=== PATIENT | female | born 1955 | race Caucasian/White ===

== ENCOUNTER 2017-05-11 00:06 | Emergency (ER) | payer OTHER ==
[2017-05-11] MEDS ORDERED: NS 0.9% 1000 ML* 1,000 ML IV ONE (01:39)
[2017-05-11 02:13] LABS: Hematocrit 39 % (35-47); Hemoglobin 12.5 g/dl (12.0-16.0); Mean Corpuscular HGB Conc 33 g/dl (31-36); Mean Corpuscular Hemoglobin 28 pg (27-31); Mean Corpuscular Volume 86 fL (80-97); Mean Platelet Volume 8 um3 (7.4-10.4); Red Blood Count 4.48 10^6/ul (4.0-5.4); Red Cell Distribution Width 13 % (10.5-15); White Blood Count 7.5 10^3/ul (3.5-10.8)
[2017-05-11 02:18] LABS: Urine Bilirubin Negative (Negative); Urine Glucose Negative (Negative); Urine Nitrite Negative (Negative)
[2017-05-11 02:25] LABS: Albumin 3.9 g/dL (3.2-5.2); BUN/Creatinine Ratio 22.2 (8-20); Calcium 9.1 mg/dL (8.6-10.3); EGFR Non-African American 96.4 (>60); Globulin 2.8 g/dL (2-4); Potassium 3.7 mmol/L (3.5-5.0); Total Bilirubin 0.4 mg/dL (0.2-1.0); Total Protein 6.7 g/dL (6.4-8.9)
[2017-05-11 02:27] LABS: Troponin I 0.01 ng/mL (<0.04)
[2017-05-11] MEDS ORDERED: Iodixanol* (CONTRAST) 320 MG/ML 100 ML SDV IV ONE (04:50)
--- NOTE | 2017-05-11 05:53 | ED ---
riana Stark Timothy, scribed for FerdinandJuan Pablo on 05/11/17 at 0137 . Abdominal Pain/Female - HPI Summary HPI Summary: Sydnee Michaud is a 61 yo female presenting to [facility] with 4/10 intermittent right sided abd pain for the past 3 days without N/V/D or fever, hematuria, vaginal discharge/bleeding. She states that her pain is worse with urination. She denies CP, SOB, or Hx of kidney stones. Her MHx includes angina, HLD, pericarditis, dyslipidemia, migraine, GERD, hemorrhoids, arthritis, DM, depression, anxiety, tobacco use (quit over 20 years ago). - History of Current Complaint Chief Complaint: EDAbdPain Stated Complaint: ABD PAIN Time Seen by Provider: 05/11/17 01:33 Hx Obtained From: Patient Onset/Duration: Gradual Onset, Lasting Days, Still Present Timing: Intermittent Episode Lasting - seconds Severity Initially: Moderate Severity Currently: Moderate Pain Intensity: 4 Pain Scale Used: 0-10 Numeric Location: Diffuse Radiates: No Aggravating Factor(s): Other: - urination Associated Signs and Symptoms: Negative: Nausea, Vomiting, Diarrhea Allergies/Adverse Reactions: Allergies Allergy/AdvReac Type Severity Reaction Status Date / Time Meperidine [From Demerol HCl] Allergy Intermediate Vomiting Verified 05/11/17 00 :14 Sulfa Drugs Allergy Intermediate Unknown Verified 05/11/17 00:14 Reaction Details Acetaminophen Allergy Unknown Unknown Verified 05/11/17 00:14 [From Darvocet-N] Reaction Details Propoxyphene Allergy Unknown Unknown Verified 05/11/17 00:14 [From Darvocet-N] Reaction Details Oxycodone [From Percocet] Allergy Unknown Verified 05/11/17 00:14 Reaction Details PMH/Surg Hx/FS Hx/Imm Hx Endocrine/Hematology History: Reports: Hx Diabetes Denies: Hx Thyroid Disease, Hx Anemia Cardiovascular History: Reports: Hx Angina, Hx Hypercholesterolemia, Other Cardiovascular Problems/Disorders - pericarditis, dyslipidemia Denies: Hx Coronary Artery Disease, Hx Hypertension, Hx Myocardial Infarction , Hx Pacemaker/ICD Respiratory History: Denies: Hx Asthma, Hx Chronic Obstructive Pulmonary Disease (COPD) GI History: Reports: Hx Gastroesophageal Reflux Disease, Other GI Disorders - colonoscopy 2011 polyps removed, hemorroids Denies: Hx Cirrhosis, Hx Jaundice, Hx Ulcer History: Denies: Hx Renal Disease Musculoskeletal History: Reports: Hx Arthritis, Hx Back Problems Denies: Hx Rheumatoid Arthritis, Hx Osteoporosis Sensory History: Reports: Hx Contacts or Glasses Denies: Hx Hearing Aid Opthamlomology History: Reports: Hx Contacts or Glasses Neurological History: Reports: Hx Headaches, Hx Migraine Psychiatric History: Reports: Hx Anxiety, Hx Depression Denies: Hx Panic Disorder - Cancer History Hx Chemotherapy: No Hx Radiation Therapy: No - Surgical History Surgery Procedure, Year, and Place: hemorrhoidectomy. sinus surgery. tubal. laproscopic exploratory surgeries x 2. polyp removals-[facility] Infectious Disease History: No Infectious Disease History: Denies: Hx Clostridium Difficile, Hx Hepatitis, Hx Human Immunodeficiency Virus (HIV), Hx of Known/Suspected MRSA, Hx Shingles, Hx Tuberculosis, Hx Known/ Suspected VRE, Hx Known/Suspected VRSA, History Other Infectious Disease, Traveled Outside the in Last 30 Days - Family History Known Family History: Positive: Cardiac Disease, Other - colon CA - Social History Alcohol Use: None Substance Use Type: Reports: None Smoking Status (MU): Former Smoker Amount Used/How Often: quit 18 years ago Review of Systems Constitutional: Negative Negative: Fever Eyes: Negative ENT: Negative Cardiovascular: Negative Respiratory: Negative Positive: Abdominal Pain. Negative: Vomiting, Diarrhea, Nausea Genitourinary: Negative Negative: discharge, hematuria Musculoskeletal: Negative Skin: Negative Neurological: Negative Psychological: Normal All Other Systems Reviewed And Are Negative: Yes Physical Exam Triage Information Reviewed: Yes Vital Signs On Initial Exam: Initial Vitals Temp Pulse Resp BP Pulse Ox 98.1 F 77 16 130/76 97 05/11/17 00:15 05/11/17 00:15 05/11/17 00:15 05/11/17 00:05/11/17 00:15 Vital Signs Reviewed: Yes Appearance: Positive: Well-Appearing, No Pain Distress, Well-Nourished Skin: Positive: Warm, Skin Color Reflects Adequate Perfusion, Dry Head/Face: Positive: Normal Head/Face Inspection Eyes: Positive: EOMI, KATHLEEN ENT: Positive: Normal ENT inspection, Hearing grossly normal. Negative: Muffled /hoarse voice Neck: Positive: Supple, Nontender Respiratory/Lung Sounds: Positive: Clear to Auscultation, Breath Sounds Present Cardiovascular: Positive: RRR, Pulses are Symmetrical in both Upper and Lower Extremities Abdomen Description: Positive: Nontender - RLQ tenderness Bowel Sounds: Positive: Present Musculoskeletal: Positive: Normal, Strength/ROM Intact Neurological: Positive: Normal, Sensory/Motor Intact, Alert, Oriented to Person Place, Time Psychiatric: Positive: Normal, Affect/Mood Appropriate Diagnostics - Vital Signs Vital Signs Temp Pulse Resp BP Pulse Ox 05/11/17 00:16 98.1 F 77 16 130/76 97 05/11/17 00:15 98.1 F 77 16 130/76 97 - Laboratory Lab Results: Lab Results 05/11/17 05/11/17 05/11/17 Range/Units 02:00 02:00 02:00 WBC 7.5 (3.5-10.8) 10^3/ul RBC 4.48 (4.0-5.4) 10^6/ul Hgb 12.5 (12.0-16.0) g/dl Hct 39 (35-47) % MCV 86 (80-97) fL MCH 28 (27-31) pg MCHC 33 (31-36) g/dl RDW 13 (10.5-15) % Plt Count 223 (150-450) 10^3/ul MPV 8 (7.4-10.4) um3 Neut % (Auto) 58.8 (38-83) % Lymph % (Auto) 29.8 (25-47) % Mcpherson % (Auto) 7.8 (1-9) % Eos % (Auto) 2.3 (0-6) % Baso % (Auto) 1.3 (0-2) % Absolute Neuts (auto) 4.4 (1.5-7.7) 10^3/ul Absolute Lymphs (auto) 2.2 (1.0-4.8) 10^3/ul Absolute Monos (auto) 0.6 (0-0.8) 10^3/ul Absolute Eos (auto) 0.2 (0-0.6) 10^3/ul Absolute Basos (auto) 0.1 (0-0.2) 10^3/ul Absolute Nucleated RBC 0 10^3/ul Nucleated RBC % 0 INR (Anticoag Therapy) 0.92 (0.89-1.11) APTT 29.0 (26.0-36.3) seconds Sodium (133-145) mmol/L Potassium (3.5-5.0) mmol/L Chloride (101-111) mmol/L Carbon Dioxide (22-32) mmol/L Anion Gap (2-11) mmol/L BUN (6-24) mg/dL Creatinine (0.51-0.95) mg/dL Est GFR ( Amer) (>60) Est GFR (Non-Af Amer) (>60) BUN/Creatinine Ratio (8-20) Glucose (70-100) mg/dL Lactic Acid (0.5-2.0) mmol/L Calcium (8.6-10.3) mg/dL Total Bilirubin (0.2-1.0) mg/dL AST (13-39) U/L ALT (7-52) U/L Alkaline Phosphatase (34-104) U/L Troponin I (<0.04) ng/mL Total Protein (6.4-8.9) g/dL Albumin (3.2-5.2) g/dL Globulin (2-4) g/dL Albumin/Globulin Ratio (1-3) Lipase (11.0-82.0) U/L Urine Color Yellow Urine Appearance Clear Urine pH 5.0 (5-9) Ur Specific [place] 1.025 (1.010-1.030) Urine Protein Negative (Negative) Urine Ketones Negative (Negative) Urine Blood Negative (Negative) Urine Nitrate Negative (Negative) Urine Bilirubin Negative (Negative) Urine Urobilinogen Negative (Negative) Ur Leukocyte Esterase Negative (Negative) Urine Glucose Negative (Negative) 05/11/17 05/11/17 Range/Units 02:00 02:00 WBC (3.5-10.8) 10^3/ul RBC (4.0-5.4) 10^6/ul Hgb (12.0-16.0) g/dl Hct (35-47) % MCV (80-97) fL MCH (27-31) pg MCHC (31-36) g/dl RDW (10.5-15) % Plt Count (150-450) 10^3/ul MPV (7.4-10.4) um3 Neut % (Auto) (38-83) % Lymph % (Auto) (25-47) % Mcpherson % (Auto) (1-9) % Eos % (Auto) (0-6) % Baso % (Auto) (0-2) % Absolute Neuts (auto) (1.5-7.7) 10^3/ul Absolute Lymphs (auto) (1.0-4.8) 10^3/ul Absolute Monos (auto) (0-0.8) 10^3/ul Absolute Eos (auto) (0-0.6) 10^3/ul Absolute Basos (auto) (0-0.2) 10^3/ul Absolute Nucleated RBC 10^3/ul Nucleated RBC % INR (Anticoag Therapy) (0.89-1.11) APTT (26.0-36.3) seconds Sodium 137 (133-145) mmol/L Potassium 3.7 (3.5-5.0) mmol/L Chloride 105 (101-111) mmol/L Carbon Dioxide 25 (22-32) mmol/L Anion Gap 7 (2-11) mmol/L BUN 14 (6-24) mg/dL Creatinine 0.63 (0.51-0.95) mg/dL Est GFR ( Amer) 124.0 (>60) Est GFR (Non-Af Amer) 96.4 (>60) BUN/Creatinine Ratio 22.2 H (8-20) Glucose 145 H (70-100) mg/dL Lactic Acid 1.2 (0.5-2.0) mmol/L Calcium 9.1 (8.6-10.3) mg/dL Total Bilirubin 0.40 (0.2-1.0) mg/dL AST 28 (13-39) U/L ALT 46 (7-52) U/L Alkaline Phosphatase 65 (34-104) U/L Troponin I 0.01 (<0.04) ng/mL Total Protein 6.7 (6.4-8.9) g/dL Albumin 3.9 (3.2-5.2) g/dL Globulin 2.8 (2-4) g/dL Albumin/Globulin Ratio 1.4 (1-3) Lipase 13 (11.0-82.0) U/L Urine Color Urine Appearance Urine pH (5-9) Ur Specific [place] (1.010-1.030) Urine Protein (Negative) Urine Ketones (Negative) Urine Blood (Negative) Urine Nitrate (Negative) Urine Bilirubin (Negative) Urine Urobilinogen (Negative) Ur Leukocyte Esterase (Negative) Urine Glucose (Negative) Result Diagrams: 05/11/17 02:00 05/11/17 02:00 Lab Statement: Any lab studies that have been ordered have been reviewed, and results considered in the medical decision making process. 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 CT Interpretation Completed By: Radiologist - Imaging precision lens centerer and edger Re-Evaluation - Re-Evaluation First Eval Re-Evaluation Time: 05:05 Change: Unchanged Comment: Discussed preliminary CT A/P results with Pt. Abdominal Pain Fem Course/Dx - Course Course Of Treatment: Sydnee Michaud is a 61 yo female presenting to [facility] with 4/10 intermittent right sided abd pain lasting seconds for the past 3 days without N/V/D or fever, hematuria, vaginal discharge/bleeding. Pt medication list reviewed this visit. In the ED course she received IV fluids. Her CT A/P suggests suspected mesenteric metastatic disease of uncertain primary, large right hepatic lesion appears to represent menangioma, slightly large left ovary without definite mass can be followed up with US. She will be signed out to Dr. Shannon pending pelvic US results. - Diagnoses Differential Diagnosis: Positive: Other - abdominal pain Provider Diagnoses: Abdominal pain Discharge - Discharge Plan Condition: Stable Disposition: OTHER Discharge Disposition Comment: signed out to Dr. Shannon pending pelvic US results The documentation as recorded by the riana jameson Timothy accurately reflects the service I personally performed and the decisions made by , Juan Pablo Streeter.
--- NOTE | 2017-05-11 08:17 | RAD ---
INDICATION: Abdominal pain, appendicitis. COMPARISON: Comparison is made to prior CT of the abdomen and pelvis from February 09, 2008. TECHNIQUE: A CT scan of the abdomen and pelvis was performed with intravenous and oral contrast following intravenous injection of 116 ml of Visipaque 320 nonionic contrast. Contiguous axial sections were obtained from the lung bases through the symphysis pubis. Images were reconstructed in the coronal and sagittal planes. FINDINGS: The lung bases are clear. No pleural effusion is present. The liver and spleen are mildly enlarged. There is a hypodense lesion present in the inferior portion of the right hepatic lobe measuring 5.8 x 5.1 cm in size. This is increased slightly in size from the prior exam and previous seen measured 5.0 x 4.3 cm in size. This has discontinuous peripheral nodular enhancement and would be most consistent with a hemangioma. No other focal hepatic abnormalities are seen. No intra or extrahepatic ductal distention is seen. No calcified gallstones are noted. The pancreas appears to be within normal limits. The kidneys and adrenal glands are normal in size. No hydronephrosis is seen. No significant focal renal abnormality is seen. The aorta is normal in caliber with mild calcific plaque present. The stomach, small and large bowel appear nondistended. The appendix is within normal limits. There is no evidence for diverticulitis or colitis. There is a moderate amount retained stool present. There is a small periumbilical hernia present containing fat. There are multiple soft tissue density masses and nodules present throughout the mesentery and omentum most consistent with metastatic disease and omental caking. Some of these have calcifications within them. In addition surrounding the posterior and lateral aspects of the uterus there is increased soft tissue density mass with some calcification which does not appear to connect with the adjacent bowel. The left ovary is enlarged and heterogeneous with central low density measuring 5.2 x 4.2 cm in size. No large retroperitoneal lymph nodes are seen. No free intraperitoneal air or fluid is seen. No significant focal osseous abnormality is seen. IMPRESSION: 1. MULTIPLE MESENTERIC AND OMENTAL MASSES MOST CONSISTENT WITH METASTATIC DISEASE. THERE IS ALSO INCREASED SOFT TISSUE DENSITY AROUND THE UTERUS AND A COMPLEX CYSTIC AND SOLID MASS IN THE LEFT OVARY. RECOMMEND A FOLLOW-UP PELVIC ULTRASOUND FOR FURTHER EVALUATION. 2. HEPATIC MASS MOST CONSISTENT WITH A HEMANGIOMA.
--- NOTE | 2017-05-11 09:21 | RAD ---
INDICATION: Left pelvic mass. COMPARISON:MRI pelvis April 02, 2017; pelvic sonogram June 02, 2013 TECHNIQUE: Longitudinal and transverse transabdominal and transvaginal of the pelvis were obtained. FINDINGS: Uterus: The uterus is normal in size. There there is a posterior fundal fibroid measuring 3.2 x 2.2 x 2.7 cm. This appears smaller than noted previously. No other definitive fibroids are seen on today's exam. The uterus measures 8.6 x 4.2 x 5.0 cm. These measurements are smaller than at the time of the 2013 examination. Endometrial thickness: The endometrial thickness is measured at 0.6 cm. This is borderline thickened. Free fluid: There is no significant free fluid . Ovaries: The right ovary appears normal measuring 2.5 x 1.8 x 1.6 cm. There is flow on Doppler interrogation. There is a large left adnexal mass as also described on the recent MRI. The mass is solid and heterogeneous with flow on Doppler interrogation. The mass, which presumably also involves the ovary measures 4.6 x 2.6 x 2.6 cm. Other: None IMPRESSION: LARGE LEFT OVARIAN ADNEXAL CONCERNING FOR PRIMARY GYNECOLOGIC LATENCY. SUGGEST GYNECOLOGIC REFERRAL. FIBROID UTERUS WITH BORDERLINE THICKENED ENDOMETRIUM.
[2017-05-11 10:27] VITALS: BP 128/74
--- NOTE | 2017-05-11 20:03 | ED ---
Mary Stark Edward, scribed for Zeferino Shannon MD on 05/11/17 at 0734 . Progress - Progress Note Progress Note: Patient states her RLQ pain is not bad rated at a 3/10 on visit. Patient is informed that we are waiting US results. Diag - CT ABD/PEL showed suspected mesenteric metastatic disease of uncertain primary. Large right hepatic lesion appears to represent a meningioma. Slightly large left ovary without definite mass can be followup with ultrasound, interpreted by the radiologist. PEL/TRANSVAG US - LARGE LEFT OVARIAN ADNEXAL CONCERNING FOR PRIMARY GYNECOLOGIC LATENCY. SUGGEST GYNECOLOGIC REFERRAL. FIBROID UTERUS WITH BORDERLINE THICKENED ENDOMETRIUM. PE - VITAL SIGNS:~Reviewed. GENERAL:~Patient is a well-developed and nourished female who is lying comfortable in the stretcher.~ Patient is not in any acute respiratory distress. HEAD AND FACE:~Normocephalic and atraumatic. EYES:~PERRLA, EOMI x 2, No injected conjunctiva. EARS:~Hearing grossly intact. Ear canals and tympanic membranes are WNL. MOUTH:~Oropharynx within normal limits. NECK:~Supple, trachea is midline, no adenopathy, no JVD. CHEST:~Symmetric, no tenderness at palpation LUNGS:~Clear to auscultation bilaterally. No wheezing or crackles. CVS:~RRR, S1 and S2 present, no murmurs or gallops appreciated. ABDOMEN:~Soft, slightly tender @ RLQ and LLQ. No signs of distention. Positive bowel sounds. No rebound no guarding, and no masses palpated. No abdominal bruit or pulsations. EXTREMITIES:~FROM in all major joints, no edema, no cyanosis or clubbing. NEURO:~Alert and oriented x 3. No acute neurological deficits. Speech is normal. SKIN:~Dry and warm COURSE/DX Discussed with Dr. Denice Belle ([facility]) who recommended the patient be discharged home, with f/u with Dr. Belle at her office. Dr. Belle will arrange the patient be treated at [facility] ([place]). Assessment and plan - Sydnee Michaud is a 61 yo female presenting to [facility] with 4/10 intermittent right sided abd pain for the past 3 days without N/V/D or fever, hematuria, vaginal discharge/bleeding. She states that her pain is worse with urination. She denies CP, SOB, or Hx of kidney stones. Her MHx includes angina, HLD, pericarditis, dyslipidemia, migraine, GERD, hemorrhoids, arthritis, DM, depression, anxiety, tobacco use (quit over 20 years ago). Sign out by Dr. Streeter. He reported that the pt came with lower abd pain and he did an abd/pel ct which showed suspected mesenteric metastatic disease of uncertain primary, large right hepatic lesion appears to represent menangioma, slightly large left ovary without definite mass can be followed up with US. Dr. Streeter requested follow up with Ultrasound and further management. Pelvic US showed LARGE LEFT OVARIAN ADNEXAL CONCERNING FOR PRIMARY GYNECOLOGIC LATENCY. SUGGEST GYNECOLOGIC REFERRAL. FIBROID UTERUS WITH BORDERLINE THICKENED ENDOMETRIUM. It seemed the patient may have L ovarian mass with metastasis. Therefore, I discussed the case with Dr. Belle from [facility] who recommends patient to be discharged home and f/u at her office for further workup and management. We need to rule out ovarian cancer with metastasis. Dr. Belle will reassess and if needed refer to [facility] oncology surgeon. Pt will be given pain medications to control pain at home. She was advised that this was a very important appointment with Dr. Belle since we need to rule out ovarian cancer. She understands that the earlier the diagnosis the earlier the treatement. She understands and agrees. The patient is hemodynamically stable and A&Ox3. Re-Evaluation - Re-Evaluation First Eval Re-Evaluation Time: 05:05 Change: Unchanged Comment: Discussed preliminary CT A/P results with Pt. Course/Dx - Course Course Of Treatment: Sydnee Michaud is a 61 yo female presenting to [facility] with 4/10 intermittent right sided abd pain lasting seconds for the past 3 days without N/V/D or fever, hematuria, vaginal discharge/bleeding. Pt medication list reviewed this visit. In the ED course she received IV fluids. Her CT A/P suggests suspected mesenteric metastatic disease of uncertain primary, large right hepatic lesion appears to represent menangioma, slightly large left ovary without definite mass can be followed up with US. She will be signed out to Dr. Shannon pending pelvic US results. - Diagnoses Provider Diagnoses: Abdominal pain, Ovarian mass r/o Ovarian Cancer w/ mets The documentation as recorded by the Mary jameson Edward accurately reflects the service I personally performed and the decisions made by me, Zeferino Shannon MD.
== END 2017-05-11 10:55 | disposition home or self-care (01) ==
LOC: ED 00:06
DX: N83.9 Noninflammatory disorder of ovary, fallopian tube and broad ligament, unspecified (principal); R10.31 Right lower quadrant pain
CPT/HCPCS: 36415; 74177; 76830; 76856; 80053; 81003; 83605; 83690; 84484; 85025; 85610; 85730; 86304; 99284; Q9967

== ENCOUNTER 2017-07-27 10:16 | Day surgery (SDC) | payer OTHER ==
[~2017-07-27 10:16] MED LIST: Buffered Lidocaine 0.9% SYRIN* 5 ML/SYR SYRINGE INTRADERM ONE; Famotidine IV* 10 MG/ML 2 ML (20 mg) IV ONE
[2017-07-27] MEDS ORDERED: Midazolam* 1 MG/ML 5 ML VIAL (5 MG) ONE (10:20)
[2017-07-27] MEDS ORDERED: fentaNYL* 50 MCG/ML 2 ML VIAL (100 MCG VIAL) ONE (10:20)
[2017-07-27] MEDS ORDERED: Lidocaine 1% INJ* 10 MG/ML 30 ML SDV ONE (10:25)
[2017-07-27] MEDS ORDERED: Ondansetron INJ* 2 MG/ML VIAL ONE (10:37)
[2017-07-27] MEDS ORDERED: Ketorolac INJ* 30 MG/ML 1 ML VIAL ONE (10:37)
[2017-07-27] MEDS ORDERED: Dexamethasone IV* 4 MG/ML 1 ML (4 MG) ONE (10:37)
[2017-07-27] MEDS ORDERED: Lidocaine 2% PF * 5 ML VIAL ONE (10:37)
[2017-07-27] MEDS ORDERED: Propofol* 10 MG/ML 20 ML BTL IV PUSH ONE (10:37)
[2017-07-27] MEDS ORDERED: Buffered Lidocaine 0.9% SYRIN* 5 ML/SYR SYRINGE ONE (10:44)
[2017-07-27] MEDS ORDERED: Heparin VIAL(*) 5000 UNITS/ML VIAL (FIVE THOUSAND) ONE (10:44)
[2017-07-27] MEDS ORDERED: Famotidine IV* 10 MG/ML 2 ML (20 mg) ONE (10:44)
[2017-07-27] MEDS ORDERED: Bupivacaine 0.5% SDV PF* 30 ML VIAL ONE (10:53)
[2017-07-27] MEDS ORDERED: DiMENhydriNATE IV* 50 MG/ML VIAL IV PUSH PRN (11:36)
[2017-07-27] MEDS ORDERED: HYDROmorphone INJ* 1 MG/ML CARPUJECT SYRINGE IV PRN (11:36)
[2017-07-27] MEDS ORDERED: oxyCODONE TAB* 5 MG TAB PO PRN (11:36)
[2017-07-27] MEDS ORDERED: Acetaminophen TAB* 325 MG PO PRN (12:23)
[2017-07-27 12:51] VITALS: BP 120/68
--- NOTE | 2017-07-27 12:57 | RAD ---
Indication: Post port placement. Ovarian carcinoma. Comparison: July 02, 2017 CT. Technique: Upright AP 1230 hours Report: Tip of subclavian approach RIGHT chest port is at the level of the superior vena cava directed central. Negative for pneumothorax. Clear lungs and pleural spaces. The heart, pulmonary vasculature, and mediastinal contours are unremarkable. IMPRESSION: Tip of RIGHT chest port is at the level of the superior vena cava directed central. Negative for pneumothorax.
--- NOTE | 2017-07-27 13:15 | SURGPN ---
Brief Operative Note - Surgery Procedures: Procedures BILAT ENDOS OCC TUBE NEC (11/22/95) ENDOSC POLYPECTOMY OF LG INTEST (08/20/03) ESOPHAGOGASTRODUODENOSCOPY [EGD] W/CLOSED BIOPSY (04/01/13) ETHMOIDECTOMY (08/04/96) INTRANASAL ANTROTOMY (08/04/96) OTHER SLEEP DISORDER FUNCTION TESTS (07/14/02) POLYSOMNOGRAM (06/10/02) SEPTOPLASTY NEC (08/04/96) TETANUS ANTITOXIN ADMINI (09/25/03) UTERINE LES DESTRUCT NEC (11/22/95) 07/27/17 Op Note (dictated) Pre-op dx: ovarian cancer Post-op dx: same Procedure: Power port placement Surgeon: Parker Asst: none EBL: 5 cc Abx: not indicated SCDs on during surgery Pt. tolerated procedure well and was transferred to in a stable condition. CLFoster
--- NOTE | 2017-07-27 13:52 | RAD ---
INDICATION: Power port placement COMPARISONS: None relevant TECHNIQUE: Fluoroscopy was provided for a vascular access procedure. Total fluoroscopy time is: 67.9 FINDINGS: Spot images demonstrate a right-sided chest port from a subclavian approach with the tip overlying the superior vena cava. IMPRESSION: FLUOROSCOPY WAS PROVIDED FOR A VASCULAR ACCESS PROCEDURE CPT II Codes: 6045F
--- NOTE | 2017-07-28 00:45 | OP ---
CC: [facility]; Chucky Galvez MD; [facility] OPERATIVE REPORT: DATE OF OPERATION: 07/27/17 DATE OF : 57 SURGEON: Marquita Canales MD FIELD TRAINER: There was no surgical assistant for this case. PRE-OPERATIVE DIAGNOSIS: Ovarian cancer. POST-OPERATIVE DIAGNOSIS: Ovarian cancer. OPERATIVE PROCEDURE: PowerPort placement. INDICATIONS: Ms. Michaud is a 61-year-old woman who needs chemotherapy for her ovarian cancer. Deniz arevalo was therefore prepared for surgery and brought to the operating room. DESCRIPTION OF PROCEDURE: She was placed on the OR table and given IV sedation. The right chest was prepped and draped in the usual sterile fashion. Then after infiltrating with local anesthetic and using a Seldinger technique and under fluoroscopic visualization, a wire was placed into the right subclavian vein with some difficulty. This required some manipulation of the wire to keep it from g oing up into the neck. Once the wire was in place, the port pocket was created. This was done by i nfiltrating the skin and the chest wall with local anesthetic, making an incision and then using jacquelyn ctrocautery to create the pocket inferiorly. Once the pocket was of a size to accommodate the port, catheter was tunneled from the port pocket site to the wire exit site and a dilator and introducer were passed over the wire into the right subclavian vein under fluoroscopic visualization. The dila tor and wire were removed. The catheter was advanced through the introducer under fluoroscopic visu alization and the introducer was peeled away. The catheter was withdrawn to an appropriate depth an d then trimmed to an appropriate length, attached to the port and the port was inserted into the poc ket and secured to the chest wall with 2-0 Surgipro stitches. Then, closure of the port pocket was accomplished after checking the function of the port, which was adequate. A 3-0 Polysorb was used t o close the subcutaneous tissue and the skin was closed with 4-0 Prolene in the subcuticular fashion . Steri-Strips and a dry sterile dressing were applied. The port was flushed with heparinized sali ne at the end of the procedure. All sponge and instrument counts were correct. The patient tolerate d the procedure well and was transferred to Recovery in a stable condition. [id number]/[facility] #: [id number]
== END 2017-07-27 13:20 | disposition home or self-care (01) ==
LOC: OR 10:16
PROVIDERS: ATTEND Surgery
DX: C56.9 Malignant neoplasm of unspecified ovary (principal); Z87.891 Personal history of nicotine dependence; G47.33 Obstructive sleep apnea (adult) (pediatric); E11.9 Type 2 diabetes mellitus without complications; Z79.84 Long term (current) use of oral hypoglycemic drugs; Z79.899 Other long term (current) drug therapy
CPT/HCPCS: 71010; J1100; J1642; J1644; J1885; J2001; J2250; J2405; J2704; J3010

== ENCOUNTER 2017-11-11 13:55 | Emergency (ER) | payer OTHER ==
[2017-11-11 15:25] LABS: ABS Basophils 0 10^3/ul (0-0.2); ABS Eosinophils 0.1 10^3/ul (0-0.6); ABS Lymphocytes 1.2 10^3/ul (1.0-4.8); ABS Monocytes 0.5 10^3/ul (0-0.8); ABS Neutrophils 1.8 10^3/ul (1.5-7.7); ABS Nucleated RBC 0 10^3/ul; Eosinophil % 2.1 % (0-6); Hematocrit 27 % (35-47); Hemoglobin 9.6 g/dl (12.0-16.0); Lymphocyte % 33.2 % (25-47); Mean Corpuscular HGB Conc 35 g/dl (31-36); Mean Corpuscular Hemoglobin 29 pg (27-31); Mean Corpuscular Volume 83 fL (80-97); Mean Platelet Volume 7 um3 (7.4-10.4); Nucleated Red Blood Cells % 0.1; Platelet Count 274 10^3/ul (150-450); Red Blood Count 3.31 10^6/ul (4.0-5.4); Red Cell Distribution Width 18 % (10.5-15); White Blood Count 3.6 10^3/ul (3.5-10.8)
[2017-11-11 15:42] LABS: EGFR Non-African American 59.3 (>60)
[2017-11-11] MEDS ORDERED: Iodixanol* (CONTRAST) 320 MG/ML 100 ML SDV IV ONE (15:54)
--- NOTE | 2017-11-11 16:30 | RAD ---
HISTORY: Chest pain, shortness of breath, history of cancer COMPARISONS: July 02, 2017 CTA, CT of the abdomen and pelvis dated June 06, 2017. TECHNIQUE: Multiple contiguous axial CT scans of the chest were obtained after the administration of nonionic intravenous contrast, timed to the pulmonary arterial phase of contrast enhancement.. Coronal and sagittal multiplanar reformations are also submitted for review. FINDINGS: NECK AND THYROID: The lower neck and thyroid are unremarkable. CHEST WALL: There is no lower cervical, axillary, or supraclavicular lymphadenopathy by size criteria. A right-sided chest port is noted. HEART AND PERICARDIUM: The heart is unremarkable. AORTA AND PULMONARY VASCULATURE: There is no pulmonary arterial filling defect to suggest pulmonary embolism. There is no linear filling defect within the aorta to suggest aortic dissection. MEDIASTINUM: There is no mediastinal lymphadenopathy by size criteria. ADRIANA: There is no hilar lymphadenopathy by size criteria. AIRWAY AND ESOPHAGUS: The airway is unremarkable, without endobronchial filling defect. The esophagus is grossly normal. LUNG PARENCHYMA: The lungs are clear. PLEURA: No pleural abnormalities are noted. UPPER ABDOMEN: There is a mass of the right lobe of the liver measuring approximately 5.7 cm in diameter. This is incompletely evaluated on the current examination but has increased in size compared to June 06, 2017. BONES AND SOFT TISSUES: Mild degenerative changes are noted. OTHER: None. IMPRESSION: 1. NO PULMONARY ARTERIAL FILLING DEFECT TO SUGGEST PULMONARY EMBOLISM. 2. INTERVAL PROGRESSION OF A LIVER MASS.
[2017-11-11 20:56] VITALS: BP 140/65
--- NOTE | 2017-11-11 22:42 | ED ---
Sheri Stark Julia, scribed for Parth Barnard MD on 11/11/17 at 1455 . Shortness of Breath - HPI Summary HPI Summary: This patient is a 61 year old F presenting to [facility] accompanied by her sister with a chief complaint of constant worsening SOB and dull chest tightness and pressure since 11:30 this morning. Patient reports abdominal pain, cough, and nasal discharge. Patient denies fever and LE edema. The patient rates the pain 3 /10 in severity. Symptoms aggravated by attempting deep breaths. Symptoms alleviated by nothing. Patient just finished chemotherapy treatment and has been recently receiving magnesium transfusions. Dr. Joseph recommended she come to the ED. - History of Current Complaint Chief Complaint: EDShortnessOfBreath Time Seen by Provider: 11/11/17 14:32 Hx Obtained From: Patient Onset/Duration: Sudden Onset Timing: Constant Dyspnea At: Rest Aggrevating Factors: Deep Breaths Alleviating Factors: Nothing Associated Signs & Symptoms: Cough (Nonproductive), Nasal Congestion - Allergy/Home Medications Allergies/Adverse Reactions: Allergies Allergy/AdvReac Type Severity Reaction Status Date / Time Acetaminophen Allergy Intermediate GI Upset Verified 11/07/17 11:49 [From Darvocet-N] Meperidine [From Demerol HCl] Allergy Intermediate Vomiting Verified 11/07/17 11 :49 Sulfa Drugs Allergy Intermediate Rash Verified 11/07/17 11:49 Propoxyphene Allergy Unknown GI Upset Verified 11/07/17 11:49 [From Darvocet-N] PMH/Surg Hx/FS Hx/Imm Hx Endocrine/Hematology History: Reports: Hx Diabetes Denies: Hx Thyroid Disease, Hx Anemia Cardiovascular History: Reports: Hx Angina, Hx Hypercholesterolemia, Other Cardiovascular Problems/Disorders - pericarditis, dyslipidemia Denies: Hx Coronary Artery Disease, Hx Hypertension, Hx Myocardial Infarction , Hx Pacemaker/ICD Respiratory History: Reports: Hx Sleep Apnea Denies: Hx Asthma, Hx Chronic Obstructive Pulmonary Disease (COPD) GI History: Reports: Hx Gastroesophageal Reflux Disease, Other GI Disorders - colonoscopy 2011 polyps removed, hemorroids Denies: Hx Cirrhosis, Hx Jaundice, Hx Ulcer History: Denies: Hx Renal Disease Musculoskeletal History: Reports: Hx Arthritis, Hx Back Problems Denies: Hx Rheumatoid Arthritis, Hx Osteoporosis Sensory History: Reports: Hx Cataracts, Hx Contacts or Glasses Denies: Hx Hearing Aid Opthamlomology History: Reports: Hx Cataracts, Hx Contacts or Glasses Neurological History: Reports: Hx Headaches, Hx Migraine Psychiatric History: Reports: Hx Anxiety, Hx Depression Denies: Hx Panic Disorder - Cancer History Hx Chemotherapy: Yes Hx Radiation Therapy: No - Surgical History Surgery Procedure, Year, and Place: hemorrhoidectomy. sinus surgery. tubal. laproscopic exploratory surgeries x 2. polyp removals-COLON Hx Anesthesia Reactions: No Infectious Disease History: No Infectious Disease History: Denies: Hx Clostridium Difficile, Hx Hepatitis, Hx Human Immunodeficiency Virus (HIV), Hx of Known/Suspected MRSA, Hx Shingles, Hx Tuberculosis, Hx Known/ Suspected VRE, Hx Known/Suspected VRSA, History Other Infectious Disease, Traveled Outside the [place] in Last 30 Days - Family History Known Family History: Positive: Cardiac Disease, Other - colon CA - Social History Alcohol Use: None Substance Use Type: Reports: None Smoking Status (MU): Former Smoker Amount Used/How Often: quit 18 years ago Review of Systems Negative: Fever Positive: Nasal Discharge Positive: Chest Pain Positive: Shortness Of Breath, Cough Negative: Edema All Other Systems Reviewed And Are Negative: Yes Physical Exam - Summary Physical Exam Summary: Appearance: The patient is well-nourished in no acute distress and in no acute pain. Skin: The skin is warm and dry and skin color reflects adequate perfusion. HEENT: The head is normocephalic and atraumatic. The pupils are equal and reactive. The conjunctivae are clear and without drainage. Nares are patent and without drainage. Mouth reveals moist mucous membranes and the throat is without erythema and exudate. The external ears are intact. The ear canals are patent and without drainage. The tympanic membranes are intact. Neck: the neck is supple with full range of motion and non-tender. There are no carotid bruits. There is no neck vein distension. Respiratory: Chest is non-tender. Lungs are clear to auscultation and breath sounds are symmetrical and equal. Cardiovascular: Heart is regular rate and rhythm. There is no murmur or rub auscultated. There is no peripheral edema and pulses are symmetrical and equal. Abdomen: The abdomen is soft and non-tender. There are normal bowel sounds heard in all four quadrants and there is no organomegaly palpated. Musculoskeletal: There is no back tenderness noted. Extremities are non-tender with full range of motion. There is good capillary refill. There is no peripheral edema or calf tenderness elicited. Neurological: Patient is alert and oriented to person, place and time. The patient has symmetrical motor strength in all four extremities. Cranial nerves are grossly intact. Deep tendon reflexes are symmetrical and equal in all four extremities. Psychiatric: The patient has an appropriate affect and does not exhibit any anxiety or depression. Triage Information Reviewed: Yes Vital Signs On Initial Exam: Initial Vitals Temp Pulse Resp BP Pulse Ox 98.4 F 106 16 116/84 99 11/11/17 13:59 11/11/17 13:59 11/11/17 13:59 11/11/17 13:59 11/11/17 13:59 Vital Signs Reviewed: Yes Diagnostics - Vital Signs Vital Signs Temp Pulse Resp BP Pulse Ox 11/11/17 13:59 98.4 F 106 16 116/84 99 - Laboratory Lab Results: Lab Results 11/11/17 11/11/17 11/11/17 Range/Units 15:10 15:10 15:10 WBC 3.6 (3.5-10.8) 10^3/ul RBC 3.31 L (4.0-5.4) 10^6/ul Hgb 9.6 L (12.0-16.0) g/dl Hct 27 L (35-47) % MCV 83 (80-97) fL MCH 29 (27-31) pg MCHC 35 (31-36) g/dl RDW 18 H (10.5-15) % Plt Count 274 (150-450) 10^3/ul MPV 7 L (7.4-10.4) um3 Neut % (Auto) 49.3 (38-83) % Lymph % (Auto) 33.2 (25-47) % Dillon % (Auto) 14.3 H (1-9) % Eos % (Auto) 2.1 (0-6) % Baso % (Auto) 1.1 (0-2) % Absolute Neuts (auto) 1.8 (1.5-7.7) 10^3/ul Absolute Lymphs (auto) 1.2 (1.0-4.8) 10^3/ul Absolute Monos (auto) 0.5 (0-0.8) 10^3/ul Absolute Eos (auto) 0.1 (0-0.6) 10^3/ul Absolute Basos (auto) 0 (0-0.2) 10^3/ul Absolute Nucleated RBC 0 10^3/ul Nucleated RBC % 0.1 Sodium 134 (133-145) mmol/L Potassium 4.3 (3.5-5.0) mmol/L Chloride 103 (101-111) mmol/L Carbon Dioxide 26 (22-32) mmol/L Anion Gap 5 (2-11) mmol/L BUN 17 (6-24) mg/dL Creatinine 0.96 H (0.51-0.95) mg/dL Est GFR ( Amer) 76.2 (>60) Est GFR (Non-Af Amer) 59.3 (>60) BUN/Creatinine Ratio 17.7 (8-20) Glucose 80 (70-100) mg/dL Lactic Acid 0.8 (0.5-2.0) mmol/L Calcium 9.2 (8.6-10.3) mg/dL Total Bilirubin 0.30 (0.2-1.0) mg/dL AST 24 (13-39) U/L ALT 15 (7-52) U/L Alkaline Phosphatase 56 (34-104) U/L Troponin I 0.00 (<0.04) ng/mL Total Protein 6.3 L (6.4-8.9) g/dL Albumin 3.6 (3.2-5.2) g/dL Globulin 2.7 (2-4) g/dL Albumin/Globulin Ratio 1.3 (1-3) 11/11/17 Range/Units 17:30 WBC (3.5-10.8) 10^3/ul RBC (4.0-5.4) 10^6/ul Hgb (12.0-16.0) g/dl Hct (35-47) % MCV (80-97) fL MCH (27-31) pg MCHC (31-36) g/dl RDW (10.5-15) % Plt Count (150-450) 10^3/ul MPV (7.4-10.4) um3 Neut % (Auto) (38-83) % Lymph % (Auto) (25-47) % Dillon % (Auto) (1-9) % Eos % (Auto) (0-6) % Baso % (Auto) (0-2) % Absolute Neuts (auto) (1.5-7.7) 10^3/ul Absolute Lymphs (auto) (1.0-4.8) 10^3/ul Absolute Monos (auto) (0-0.8) 10^3/ul Absolute Eos (auto) (0-0.6) 10^3/ul Absolute Basos (auto) (0-0.2) 10^3/ul Absolute Nucleated RBC 10^3/ul Nucleated RBC % Sodium (133-145) mmol/L Potassium (3.5-5.0) mmol/L Chloride (101-111) mmol/L Carbon Dioxide (22-32) mmol/L Anion Gap (2-11) mmol/L BUN (6-24) mg/dL Creatinine (0.51-0.95) mg/dL Est GFR ( Amer) (>60) Est GFR (Non-Af Amer) (>60) BUN/Creatinine Ratio (8-20) Glucose (70-100) mg/dL Lactic Acid (0.5-2.0) mmol/L Calcium (8.6-10.3) mg/dL Total Bilirubin (0.2-1.0) mg/dL AST (13-39) U/L ALT (7-52) U/L Alkaline Phosphatase (34-104) U/L Troponin I 0.00 (<0.04) ng/mL Total Protein (6.4-8.9) g/dL Albumin (3.2-5.2) g/dL Globulin (2-4) g/dL Albumin/Globulin Ratio (1-3) Result Diagrams: 11/11/17 15:10 11/11/17 15:10 Lab Statement: Any lab studies that have been ordered have been reviewed, and results considered in the medical decision making process. - CT Chest/Thorax CT Interpretation Completed By: Radiologist - 1. NO PULMONARY ARTERIAL FILLING DEFECT TO SUGGEST PULMONARY EMBOLISM. 2. INTERVAL PROGRESSION OF A LIVER MASS. ED Physician has reviewed this report. - EKG 14:18 Cardiac Rate: NL EKG Rhythm: Sinus Rhythm EKG Interpretation: L axis deviation Course/Dx - Course Course Of Treatment: Ms. Michaud presented with an atypical chest pain that was somewhat pleuritic. She is equivocal about whether or not she is SOB. She has had some URI symptoms. Her W/U including CTA and delayed troponin was negative and I will send her home and recommend close F/U. - Diagnoses Provider Diagnoses: Chest pain Discharge - Discharge Plan Condition: Stable Disposition: HOME Patient Education Materials: Chest Pain (ED) Referrals: Chucky Galvez MD [Primary Care Provider] - Additional Instructions: Patient is instructed follow up with Primary care Physician this week. RETURN TO THE EMERGENCY DEPARTMENT FOR CHANGING OR WORSENING SYMPTOMS. The documentation as recorded by the Sheri jameson Julia accurately reflects the service I personally performed and the decisions made by me, Parth Barnard MD.
== END 2017-11-11 20:54 | disposition home or self-care (01) ==
LOC: ED 13:55
DX: R07.9 Chest pain, unspecified (principal); R05 Cough; R09.81 Nasal congestion; R06.02 Shortness of breath; Z87.891 Personal history of nicotine dependence
CPT/HCPCS: 36415; 71275; 80053; 83605; 84484; 85025; 93005; 99282; J1642; Q9967

== ENCOUNTER 2017-12-06 17:25 | Emergency (ER) | payer OTHER ==
--- OUTSIDE RECORDS SUMMARY | 2017-12-06 17:58 | XMS REPORT ---
:1955 External Reference #:[id number] Author Organization [facility] Address [address] [address] Phone [phone] Care Team Providers Name Role Phone Chucky Galvez MD Primary Care Physician Unavailable Payers Type Date Identification Numbers Payment Provider Subscriber Commercial Policy Number: [id number] [employer] Armando Michaud Group Number: [id number] [address] PayID: [id number] [place] [address] Problems Date Description Provider Status Onset: 11/30/2017 Chest pain Shivam Joyner M.D., Active FAC, FASNC Onset: 08/04/2015 Localized, primary osteoarthritis Cammie Chiu M.D. Active Onset: 04/16/2015 Osteoarthritis of knee Cammie Chiu M.D. Active Onset: 04/16/2015 Localized, primary osteoarthritis Cammie Chiu M.D. 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 ETOH Use Denies alcohol use Smoking Patient is a former smoker Quit 1995 Recreational Drug Use Denies Drug Use Daily Caffeine Does Not Consume Caffeine Exercise Type/Frequency Does not exercise General Hx Text Do you follow a special diet: no regular Do you have problems with snoring ,daytime fatigue: BIPAP machine started wearing last night 2/08/18, yes minimal daytime time fatigue scale 2 Allergies, Adverse Reactions, Alerts Date Description Reaction Status Severity Comments 04/16/2015 Sulfa Antibiotics active 11/29/2017 Meperidine active 11/29/2017 Propoxyphene active 11/30/2017 Demerol active 11/30/2017 Darvocet active Medications Medication Date Status Form Strength Qnty SIG Indications Ordering Provider Protonix Active Tablets 40mg 2 by mouth Unknown /0000 DR every day Glipizide Active Tablets 10mg 1 by mouth Unknown /0000 twice a day ( taken as needed above 100 then taken) Simvastatin Active Tablets 40mg 1 by mouth Unknown /0000 every night at bedtime Trulicity Active Solution 1.5mg/0.5 inject sc / Pen-Injec ML weekly ( On t Hold , reevaluate with Dr. Galvez ) Aspirin Adult Low Active Tablets 81mg take one Unknown Strength /0000 DR tablet by mouth daily. Prochlorperazine Active Tablets 10mg Take 1 Unknown Maleate /0000 Tablet By Mouth Every 4 Hours as Needed For Nausea ( Switched to patches) Lorazepam Active Tablets 0.5mg Take 1 Unknown /0000 Tablet By Mouth as Needed For Anxiety Up To Three Tomes Daily Metformin HCL ER Active Tablets 500mg Take 1 Unknown /0000 ER 24HR Tablet By Mouth Twice A Day Scopolamine Active 1.5 mg patch Unknown / Triamcinolone Active Paste 0.1% apply 10/25 " Unknown Acetonide / to oral lesion at bedtime as needed Bupropion HCL ER Active Tablets 300mg 1 by mouth Unknown (XL) /0000 ER 24HR every day Citrate Of Active 20 ml po tid Unknown Magnesium / Colace Active Capsules 100mg 1 tab by Unknown /0000 mouth twice daily Gabapentin Active Capsules 300mg 1 by mouth Unknown /0000 two times a day Marinol Active Capsules 5mg tid Unknown / Miralax Active Packet 3350NF dissolve 1 Unknown /0000 teaspoonlul powder in 8 onces of water. take twice daily as needed Mucus D Active Tablets 60-600mg 1 po hs prn Unknown /0000 ER 12HR ( last taken approximate 2 week end of Oct 2017) Ondansetron 00 Active Tablets 4mg dissolve one Unknown /0000 Dispers tablet orally every 4 hours as needed for nausea. Senna Laxative Active Tablets 8.6mg 2 tabs po Unknown /0000 twice daily Percocet 06/23 Hx Tablets 5-325mg 80tab 1-2 tabs by M16.12 Cammie s mouth q6 as Aram, needed pain M.D. Naproxen 04/16 Hx Tablets 500mg 40tab 1 tablet M25.561 Cammie s with food by Aram, mouth twice M.D. a day Cyclobenzaprine 04/16 Hx Tablets 10mg 60tab 1 tablet by M25.561 Cammie s mouth q8 Aram, hours as M.D. needed muscle spasms Januvia Hx Tablets 100mg 1 by mouth Unknown /0000 every day Wellbutrin XL 00 Hx Tablets 300mg 1 by mouth Unknown /0000 ER 24HR every day Wellbutrin XL Hx Tablets 150mg 1 by mouth Unknown /0000 ER 24HR every day Prozac 00 Hx Capsules 20mg 1 by mouth Unknown /0000 every day Multivitamin 00 Hx Tablets Unknown Adult /0000 Magnesium Oxide 00 Hx Tablets 800mg Take 1 Unknown /0000 Tablet By - Mouth Twice 11/29 Dexamethasone 00 Hx Tablets 4mg Take 3 Unknown /0000 Tablets By - Mouth Once A 11/29 Day On 2 And 3 After Chemotherapy Ondansetron HCL Hx Tablets 8mg Take 1 Unknown /0000 Tablet By - Mouth Every 11/29 8 Hours Needed For Nausea Potassium Hx Tablets 20Meq 1 by mouth Unknown Chloride Lucy ER /0000 ER every day - 11/29 Gabapentin 00/ Hx Unknown /0000 - 11/28 Medications Administered in Office Medication Date Status Form Strength Qnty SIG Indications Ordering Provider Depomedrol Administered Injection Cammie 80MG 015 Erin Chiu Depomedrol Administered Injection Cammie 80MG 015 Erin Chiu Vital Signs Date Vital Result Comment 11/30/2017 Height 68 inches 5'8" Weight 156.75 lb without shoes Heart Rate 96 /min BP Systolic 110 mmHg Rue reg cuff BP Diastolic 70 mmHg Rue reg cuff BP Systolic Sitting 108 mmHg Lue reg cuff BP Diastolic Sitting 74 mmHg Lue reg cuff BP Systolic Standing 94 mmHg Lue reg cuff BP Diastolic Standing 62 mmHg Lue reg cuff Respiratory Rate 17 /min BMI (Body Mass Index) 23.8 kg/m2 08/03/2017 Heart Rate 76 /min BP Systolic 136 mmHg BP Diastolic 80 mmHg Respiratory Rate 16 /min Body Temperature 98.2 F 07/17/2017 Height 67.5 inches 5'7.50" Weight 166.00 lb Heart Rate 84 /min BP Systolic 118 mmHg BP Diastolic 78 mmHg Respiratory Rate 16 /min Body Temperature 98.0 F BMI (Body Mass Index) 25.6 kg/m2 08/23/2016 Heart Rate 66 /min BP Systolic 104 mmHg BP Diastolic 68 mmHg Respiratory Rate 16 /min Body Temperature 97.2 F 08/04/2015 Height 68 inches 5'8" Weight 196.00 lb Pain Level 6 BMI (Body Mass Index) 29.8 kg/m2 06/23/2015 Height 68 inches 5'8" Weight 196.00 lb Pain Level 6 BMI (Body Mass Index) 29.8 kg/m2 04/16/2015 Height 68 inches 5'8" Weight 196.00 lb Heart Rate 66 /min BP Systolic 99 mmHg BP Diastolic 68 mmHg Pain Level 2 BMI (Body Mass Index) 29.8 kg/m2 Results Test Date Test Result H/L Range Note Laboratory test 07/27/2017 Point of Care Glucose 85 mg/dL 70-100 1 finding Laboratory test 07/27/2017 Point of Care Glucose 115 mg/dL High 70-100 2 finding Xray 08/11/2015 Arthrography - Hip RT <pending> 1 Engineering Department Chair: [id number] 2 Engineering Department Chair: [id number] Procedures Date CPT Code Description Status 11/30/2017 84821 EKG Tracing & Interpretation Completed 07/27/2017 14195 Fluoroscopic Guidance For Cent Completed 07/27/2017 87540 Insertion Tunneled Cent Venous Cathr W Subcut Port 5 Completed Yrs Or Oldr 11/07/2016 Mammogram Completed 08/04/201502705 Inject/Drain Joint/Bursa Major Completed 04/16/201512044 Inject/Drain Joint/Bursa Major Completed 02/04/2013 54694 Treadmill Interp/Report Only Completed 02/04/2013 41105 Stress Test Supervsn W/Out I/R Completed 02/04/2013 94327 EKG, Interpretation Only Completed 08/25/2010 21277 Treadmill Interp/Report Only Completed 08/25/2010 25425 Stress Test Supervsn W/Out I/R Completed 08/04/2010 35355 ECHO Stress Test Incl Perf Contiuous ekg Monitoring Completed W/Phys Superv 05/04/2006 33409 Stress ECHO Interpretation/Report Hospital Completed 05/04/2006 18597 Stress ECHO Interpretation/Report Hospital Completed 05/04/2006 98126 Treadmill Interp/Report Only Completed 05/04/2006 45149 Stress Test Supervsn W/Out I/R Completed 05/04/2006 00736 Stress Test Supervsn W/Out I/R Completed Encounters Type Date Location Provider CPT E/M Dx Office Visit 07/17/2017 [facility] [place] [address] C56.9 1:00p Digital Account Coordinator Office Visit 08/23/2016 [facility] [place] [address] N63 9:00a Digital Account Coordinator Office Visit 06/23/2015 [facility] M.D. 98012 715.15 2:30p C.M.A. 715.96 719.46 719.45 715.95 Office Visit 04/16/2015 8:00a [facility] Ch[facility] M.D. 75613 715.15 C.M.A. 715.96 719.46 719.45 724.2 Office Visit 02/04/2013 9:13a [facility] Jair Junior, 49787 786.50 M.D. 250.82 272.0 275.41 Office Visit 02/03/2013 2:53p [facility] Giselle Canales, 56606 786.51 Hospitalists N.P. 250.00 300.4 530.81 Office Visit 08/04/2010 9:30a [facility] Edith Tobar, 42460 786.50 M.D. 272.4 786.05 Plan of Care Future Appointment(s):01/30/2018 11:00 am - Shivam Joyner M.D., [facility] [place] at [facility]12/24/2017 10:15 am - Shivam Joyner M.D., [facility] at [facility]11/30/2017 - Shivam Joyner M.D., [facility], [id number] Chest pain, unspecifiedNew Orders:Stress Test, Pharmacologic Nuclear (Lexiscan)EchocardiogramComments:As discussed, we will further evaluate your heart.Follow up:after NEM and TOE
--- NOTE | 2017-12-06 18:06 | RAD ---
INDICATION: Injury 3 weeks ago COMPARISON: None TECHNIQUE: Noncontrast axial source images were acquired from the skull base to the vertex. FINDINGS: Ventricles/sulci: The ventricles and cisterns are normal in size and configuration for age. Brain parenchyma: There is no focal parenchymal finding, evidence of intracranial mass, or intracranial mass effect. Intracranial hemorrhage:None. Extra-axial spaces: There are no abnormal extra axial fluid collections or evidence of extra-axial mass. Calvarium: There is no calvarial fracture or other calvarial abnormality. Scalp: There is no evidence of scalp or extracalvarial soft tissue abnormality. Paranasal sinuses/mastoid: The paranasal sinuses and mastoid air cells are clear. Other: None. IMPRESSION: NO ACUTE INTRACRANIAL FINDINGS
[2017-12-06 23:28] VITALS: BP 125/67
--- NOTE | 2017-12-06 23:34 | ED ---
Maxim Stark Stephanie, scribed for Mendez Matthews MD on 12/06/17 at 2331 . Throat Pain/Nasal Congestion - HPI Summary HPI Summary: The pt is a 62 y/o F presenting to the ED with c/o unequal dilated pupils that began at 14:00 today. The p uses scopolamine patches and reports taking her patch off this morning and possibly toughing her eyes. Pt reports fall 3 weeks ago with head trauma and dizziness 1 week ago. The pt changes her chemo patch every 3 days. - History of Current Complaint Chief Complaint: EDEyeProblem Time Seen by Provider: 12/06/17 23:03 Hx Obtained From: Patient Onset/Duration: Lasting Hours - 12, Still Present Associated Signs And Symptoms: Positive: Negative - Allergies/Home Medications Allergies/Adverse Reactions: Allergies Allergy/AdvReac Type Severity Reaction Status Date / Time MS Acetaminophen Allergy Intermediate GI Upset Verified 11/26/17 10:40 [From Darvocet-N] MS Meperidine Allergy Intermediate Vomiting Verified 11/26/17 10:40 [From Demerol HCl] MS Sulfa Drugs [Sulfa Drugs] Allergy Intermediate Rash Verified 11/26/17 10:40 MS Propoxyphene Allergy Unknown GI Upset Verified 11/26/17 10:40 [From Darvocet-N] PMH/Surg Hx/FS Hx/Imm Hx Endocrine/Hematology History: Reports: Hx Diabetes Denies: Hx Thyroid Disease, Hx Anemia Cardiovascular History: Reports: Hx Angina, Hx Hypercholesterolemia, Other Cardiovascular Problems/Disorders - pericarditis, dyslipidemia Denies: Hx Coronary Artery Disease, Hx Hypertension, Hx Myocardial Infarction , Hx Pacemaker/ICD Respiratory History: Reports: Hx Sleep Apnea Denies: Hx Asthma, Hx Chronic Obstructive Pulmonary Disease (COPD) GI History: Reports: Hx Gastroesophageal Reflux Disease, Other GI Disorders - colonoscopy 2011 polyps removed, hemorroids Denies: Hx Cirrhosis, Hx Jaundice, Hx Ulcer History: Denies: Hx Renal Disease Musculoskeletal History: Reports: Hx Arthritis, Hx Back Problems Denies: Hx Rheumatoid Arthritis, Hx Osteoporosis Sensory History: Reports: Hx Cataracts, Hx Contacts or Glasses Denies: Hx Hearing Aid Opthamlomology History: Reports: Hx Cataracts, Hx Contacts or Glasses Neurological History: Reports: Hx Headaches, Hx Migraine Psychiatric History: Reports: Hx Anxiety, Hx Depression Denies: Hx Panic Disorder - Cancer History Cancer Type, Location and Year: ovarian cancer Hx Chemotherapy: Yes Hx Radiation Therapy: No - Surgical History Surgery Procedure, Year, and Place: hemorrhoidectomy. sinus surgery. tubal. laproscopic exploratory surgeries x 2. polyp removals-COLON Hx Anesthesia Reactions: No Infectious Disease History: No Infectious Disease History: Denies: Hx Clostridium Difficile, Hx Hepatitis, Hx Human Immunodeficiency Virus (HIV), Hx of Known/Suspected MRSA, Hx Shingles, Hx Tuberculosis, Hx Known/ Suspected VRE, Hx Known/Suspected VRSA, History Other Infectious Disease, Traveled Outside the [place] in Last 30 Days - Family History Known Family History: Positive: Cardiac Disease, Other - colon CA - Social History Occupation: Employed Full-time Lives: With Family Alcohol Use: None Substance Use Type: Reports: None Smoking Status (MU): Former Smoker Amount Used/How Often: quit 18 years ago Review of Systems Negative: Fever Positive: Other - unequal dilated pupils All Other Systems Reviewed And Are Negative: Yes Physical Exam - Summary Physical Exam Summary: VITAL SIGNS: Reviewed. GENERAL: Patient is a well-developed and nourished FEMALE who is lying comfortable in the stretcher. Patient is not in any acute respiratory distress. HEAD AND FACE: No signs of trauma. No ecchymosis, hematomas or skull depressions. No sinus tenderness. EYES: L pupil 2-3 mm, R pupil 3-4 mm, EOMI x 2, No injected conjunctiva, no nystagmus. EARS: Hearing grossly intact. Ear canals and tympanic membranes are within normal limits. MOUTH: Oropharynx within normal limits. NECK: Supple, trachea is midline, no adenopathy, no JVD, no carotid bruit, no c- spine tenderness, neck with full ROM. CHEST: Symmetric, no tenderness at palpation LUNGS: Clear to auscultation bilaterally. No wheezing or crackles. CVS: Regular rate and rhythm, S1 and S2 present, no murmurs or gallops appreciated. ABDOMEN: Soft, non-tender. No signs of distention. No rebound no guarding, and no masses palpated. Bowel sounds are normal. EXTREMITIES: FROM in all major joints, no edema, no cyanosis or clubbing. NEURO: Alert and oriented x 3. No acute neurological deficits. Speech is normal and follows commands. SKIN: Dry and warm Triage Information Reviewed: Yes Vital Signs On Initial Exam: Initial Vitals Temp Pulse Resp BP Pulse Ox 98.2 F 97 18 115/63 99 12/06/17 17:33 12/06/17 17:33 12/06/17 17:33 12/06/17 17:33 12/06/17 17:33 Vital Signs Reviewed: Yes Diagnostics - Vital Signs Vital Signs Temp Pulse Resp BP Pulse Ox 12/06/17 21:50 97.6 F 81 20 102/63 98 12/06/17 19:25 98.3 F 101 18 135/83 100 12/06/17 17:33 98.2 F 97 18 115/63 99 - Laboratory Lab Statement: Any lab studies that have been ordered have been reviewed, and results considered in the medical decision making process. - CT Brain CT Interpretation: No Acute Changes CT Interpretation Completed By: Radiologist - NO ACUTE INTRACRANIAL FINDINGS EENT Course/Dx - Course Course Of Treatment: pt used scopolamine patch for N/V induced by chemotherapy. The pt states she changed patched this morning. She does not have any other symptoms. Dilated pupil on R side likely due scopolamine patch. 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 - Diagnoses Provider Diagnoses: unilateral mydriasis R eye Discharge - Discharge Plan Condition: Stable Disposition: HOME Referrals: Chucky Galvez MD [Primary Care Provider] - 2 Days Additional Instructions: Wash hands or use gloves after/while touching scopolamine patch. RETURN TO EMERGENCY DEPARTMENT FOR ANY NEW OR WORSENING SYMPTOMS The documentation as recorded by the Maxim jameson Stephanie accurately reflects the service I personally performed and the decisions made by , Mendez Matthews MD.
== END 2017-12-06 23:25 | disposition home or self-care (01) ==
LOC: ED 17:25
DX: H57.04 Mydriasis (principal); T44.3X5A Adverse effect of other parasympatholytics [anticholinergics and antimuscarinics] and spasmolytics, initial encounter; Z87.891 Personal history of nicotine dependence; Z88.5 Allergy status to narcotic agent; Z88.2 Allergy status to sulfonamides; Z88.8 Allergy status to other drugs, medicaments and biological substances
CPT/HCPCS: 70450; 99282

== ENCOUNTER 2018-07-16 00:14 | Emergency (ER) | payer BC ==
[2018-07-16] MEDS ORDERED: Ketorolac INJ* 30 MG/ML 1 ML VIAL IV PUSH ONE (01:03)
[2018-07-16] MEDS ORDERED: Metoclopramide IV* 5 MG/ML 2 ML VIAL IV SLOW PU ONE (01:03)
[2018-07-16] MEDS ORDERED: Labetalol IV* 5 MG/ML 20 ML VIAL IV PUSH ONE (01:03)
[2018-07-16] MEDS ORDERED: diPHENhydraMINE IV* 50 MG/ML 1 ml VIAL (BENADRYL) IV ONE (01:04)
--- NOTE | 2018-07-16 01:05 | ED ---
Headache - HPI Summary HPI Summary: This patient is a 62 year old F presenting to [facility] accompanied by her with a chief complaint of a headache behind her eyes and in her forehead that began 4 days ago. She states she has HTN and that her high BP triggers these sx. The patient rates the pain 8/10 in severity. Symptoms alleviated by nothing , she has tried Tylenol. Patient reports n/v and photophobia. Pt saw her oncologist and was given antihypertensive, she is receiving chemo for ovarian cancer. She states she took her BP at home and it was 198/100. - History Of Current Complaint Chief Complaint: EDHypertension Stated Complaint: HIGH BP/VOMITTING Time Seen by Provider: 07/16/18 00:45 Hx Obtained From: Patient Onset/Duration: Started days ago - 4, Still Present Initially Headache Was: Initial Pain Scale(0-10)= - 8 Currently Pain Is: Current Pain Scale(0-10)= - 8 Timing: Constant Location of Headache: Frontal Allevating Factors: Nothing Associated Signs And Symptoms: Nausea, Vomiting - Allergies/Home Medications Allergies/Adverse Reactions: Allergies Allergy/AdvReac Type Severity Reaction Status Date / Time acetaminophen Allergy GI Upset Verified 07/16/18 00:26 [From Darvocet-N] meperidine [From Demerol] Allergy Vomiting Verified 07/16/18 00:26 propoxyphene Allergy GI Upset Verified 07/16/18 00:26 [From Darvocet-N] Sulfa (Sulfonamide Allergy Rash Verified 07/16/18 00:26 Antibiotics) PMH/Surg Hx/FS Hx/Imm Hx Endocrine/Hematology History: Reports: Hx Diabetes Denies: Hx Thyroid Disease, Hx Anemia Cardiovascular History: Reports: Hx Angina, Hx Hypercholesterolemia, Other Cardiovascular Problems/Disorders - pericarditis, dyslipidemia Denies: Hx Coronary Artery Disease, Hx Hypertension, Hx Myocardial Infarction , Hx Pacemaker/ICD Respiratory History: Reports: Hx Sleep Apnea Denies: Hx Asthma, Hx Chronic Obstructive Pulmonary Disease (COPD) GI History: Reports: Hx Gastroesophageal Reflux Disease, Other GI Disorders - colonoscopy 2011 polyps removed, hemorroids Denies: Hx Cirrhosis, Hx Jaundice, Hx Ulcer History: Denies: Hx Renal Disease Musculoskeletal History: Reports: Hx Arthritis, Hx Back Problems Denies: Hx Rheumatoid Arthritis, Hx Osteoporosis Sensory History: Reports: Hx Cataracts, Hx Contacts or Glasses Denies: Hx Hearing Aid Opthamlomology History: Reports: Hx Cataracts, Hx Contacts or Glasses Neurological History: Reports: Hx Headaches, Hx Migraine Psychiatric History: Reports: Hx Anxiety, Hx Depression Denies: Hx Panic Disorder - Cancer History Cancer Type, Location and Year: ovarian 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 sinus surgery. tubal. laproscopic exploratory surgeries x 2. polyp removals-COLON. 05/30/2017, HYSTERECTOMY,APPY, PARTIAL COLECTOMY FOR CA Hx Anesthesia Reactions: No Infectious Disease History: No Infectious Disease History: Denies: Hx Clostridium Difficile, Hx Hepatitis, Hx Human Immunodeficiency Virus (HIV), Hx of Known/Suspected MRSA, Hx Shingles, Hx Tuberculosis, Hx Known/ Suspected VRE, Hx Known/Suspected VRSA, History Other Infectious Disease, Traveled Outside the [place] in Last 30 Days - Family History Known Family History: Positive: Cardiac Disease, Other - colon CA - Social History Lives: With Family Alcohol Use: None Substance Use Type: Reports: None Smoking Status (MU): Former Smoker Amount Used/How Often: quit 18 years ago Review of Systems Negative: Fever Positive: Photophobia Positive: Vomiting, Nausea Positive: Headache All Other Systems Reviewed And Are Negative: Yes Physical Exam - Summary Physical Exam Summary: VITAL SIGNS: Reviewed. GENERAL: Patient is a well-developed and nourished female who is lying comfortable in the stretcher. Patient is not in any acute respiratory distress. HEAD AND FACE: No signs of trauma. No ecchymosis, hematomas or skull depressions. No sinus tenderness. EYES: PERRLA, EOMI x 2, No injected conjunctiva, no nystagmus. EARS: Hearing grossly intact. Ear canals and tympanic membranes are within normal limits. MOUTH: Oropharynx within normal limits. NECK: Supple, trachea is midline, no adenopathy, no JVD, no carotid bruit, no c- spine tenderness, neck with full ROM. CHEST: Symmetric, no tenderness at palpation LUNGS: Clear to auscultation bilaterally. No wheezing or crackles. CVS: Regular rate and rhythm, S1 and S2 present, no murmurs or gallops appreciated. ABDOMEN: Soft, non-tender. No signs of distention. No rebound no guarding, and no masses palpated. Bowel sounds are normal. EXTREMITIES: FROM in all major joints, no edema, no cyanosis or clubbing. NEURO: Alert and oriented x 3. No acute neurological deficits. Speech is normal and follows commands. SKIN: Dry and warm Triage Information Reviewed: Yes Vital Signs On Initial Exam: Initial Vitals Temp Pulse Resp BP Pulse Ox 97.3 F 72 18 177/87 96 07/16/18 00:23 07/16/18 00:23 07/16/18 00:23 07/16/18 00:23 07/16/18 00:23 Vital Signs Reviewed: Yes - García Coma Scale Best Eye Response: 4 - Spontaneous Best Motor Response: 6 - Obeys Commands Best Verbal Response: 5 - Oriented Coma Scale Total: 15 Diagnostics - Vital Signs Vital Signs Temp Pulse Resp BP Pulse Ox 07/16/18 00:23 97.3 F 72 18 177/87 96 - Laboratory Result Diagrams: 07/16/18 01:29 07/16/18 01:29 Lab Statement: Any lab studies that have been ordered have been reviewed, and results considered in the medical decision making process. - CT CT Head CT Interpretation Completed By: Radiologist - No acute findings. ED physician has reviewed this radiology report. - EKG 0154 Cardiac Rate: NL EKG Rhythm: Sinus Rhythm - at [address] Segment: Non-Specific EKG Interpretation: nml axis, nml intervals, measure QT is 400 milliseconds Re-Evaluation - Re-Evaluation First Eval Re-Evaluation Time: 04:28 Change: Improved Comment: Pt is feeling better and her BP has improved Headache Course/Dx - Course Assessment/Plan: This patient is a 62 year old F presenting to [facility] accompanied by her with a chief complaint of a headache behind her eyes and in her forehead that began 4 days ago. She states she has HTN and that her high BP triggers these sx. The patient rates the pain 8/10 in severity. Symptoms alleviated by nothing, she has tried Tylenol. Patient reports n/v and photophobia. Pt saw her oncologist and was given antihypertensive, she is receiving chemo for ovarian cancer. She states she took her BP at home and it was 198/100. An EKG reveals nml axis, nml intervals, non specific t waves changes, measure QT is [address] Head, reveals, per radiologist, No acute findings. Blood work obtained. In the ED course the patient was given Benadryl, heparin, toradol, trandate, and reglan. Pt was instructed to take 5mg of her antihypertensive and monitor her BP. Patient will be discharged and follow up from oncology. The patient is agreeable with this plan. - Diagnoses Provider Diagnoses: HTN (hypertension), Headache Discharge - Sign-Out/Discharge Documenting (check all that apply): Patient Departure - Discharge Plan Condition: Stable Disposition: HOME Patient Education Materials: Chronic Hypertension (ED), Acute Headache (ED) Referrals: Peg Joseph MD [Medical Doctor] - 2 Days Additional Instructions: Take 5mg of norvasc everyday and monitor your blood pressure. RETURN TO THE EMERGENCY DEPARTMENT FOR CHANGING OR WORSENING SYMPTOMS. FOLLOW UP WITH PCP IN 1 -2 DAYS. - Attestation Statements Document Initiated by Scribe: Yes Documenting Scribe: Alireza Barrera Provider For Whom Scribe is Documenting (Include Credential): Mendez Matthews MD Scribe Attestation: Alireza Stark , scribed for Mendez Matthews MD on 07/16/18 at 0426.
[2018-07-16 01:37] LABS: ABS Basophils 0.1 10^3/ul (0-0.2); ABS Eosinophils 0.1 10^3/ul (0-0.6); ABS Lymphocytes 0.9 10^3/ul (1.0-4.8); ABS Monocytes 0.6 10^3/ul (0-0.8); ABS Neutrophils 8.1 10^3/ul (1.5-7.7); ABS Nucleated RBC 0 10^3/ul; Eosinophil % 0.8 % (0-6); Hematocrit 31 % (35-47); Hemoglobin 10.7 g/dl (12.0-16.0); Lymphocyte % 8.8 % (25-47); Mean Corpuscular HGB Conc 35 g/dl (31-36); Mean Corpuscular Hemoglobin 28 pg (27-31); Mean Corpuscular Volume 82 fL (80-97); Nucleated Red Blood Cells % 0; Platelet Count 159 10^3/ul (150-450); Red Blood Count 3.79 10^6/ul (4.00-5.40); Red Cell Distribution Width 16 % (10.5-15); White Blood Count 9.7 10^3/ul (3.5-10.8)
[2018-07-16 01:45] LABS: INR 0.96 (0.77-1.02)
--- NOTE | 2018-07-16 02:06 | RAD ---
EXAM: CT Head Without Intravenous Contrast CLINICAL HISTORY: 62 years old, female; Pain; Headache; Headache not specified; Additional info: H/a TECHNIQUE: Axial computed tomography images of the head/brain without intravenous contrast. All CT scans at this facility use at least one of these dose optimization techniques: automated exposure control; mA and/or kV adjustment per patient size (includes targeted exams where dose is matched to clinical indication); or iterative reconstruction. COMPARISON: BRAIN WO CT BRAIN WO 12/06/2017 5:58 PM FINDINGS: Brain: No evidence of acute intracranial hemorrhage. No intracranial mass or mass effect. The appearance of the tang matter and white matter are intact. Ventricles: No obstructive hydrocephalus. Bones/joints: Unremarkable. No acute fracture. Soft tissues: Unremarkable. Vasculature: Vascular calcification. Sinuses: Unremarkable as visualized. No acute sinusitis. Mastoid air cells: Unremarkable as visualized. No mastoid effusion. IMPRESSION: No acute findings.
[2018-07-16 02:15] LABS: EGFR Non-African American 62.8 (>60)
[2018-07-16] MEDS ORDERED: Magnesium Sulfate IV* 2 GM in NS 0.9% 100 ML* 100 ML IV ONE (03:00)
[2018-07-16 04:43] VITALS: BP 138/71
== END 2018-07-16 04:53 | disposition home or self-care (01) ==
LOC: ED 00:14
DX: I10 Essential (primary) hypertension (principal); R51 Headache; C56.9 Malignant neoplasm of unspecified ovary; Z87.891 Personal history of nicotine dependence; Z88.2 Allergy status to sulfonamides; Z88.5 Allergy status to narcotic agent
CPT/HCPCS: 36415; 70450; 80053; 83735; 85025; 85610; 85730; 93005; 96374; 96375; 99284; J1200; J1642; J1885; J2765; J3475

== ENCOUNTER 2018-07-20 14:03 | Emergency (ER) | payer BC ==
--- NOTE | 2018-07-20 14:24 | ED ---
Hypertension - HPI Summary HPI Summary: This patient is a 62 year old F presenting to [facility] accompanied by a friend with a chief complaint of headache and nausea with and elevated blood pressure reading. Patient reports neck pain and blurred vision. This morning at 10:15 patients blood pressure was 184/98. She took Imitrex at 09:30 but vomited shortly after. She took Zofran at 10:30. She also took her Lopressor and Protonix this morning. Patient denies fever, chest pain, and SOB. Patient is currently going through chemotherapy and is seen by Dr. Babb. - History of Current Complaint Chief Complaint: EDHeadache Stated Complaint: HEADACHE VOMITTING Time Seen by Provider: 07/20/18 14:16 Hx Obtained From: Patient Onset/Duration: Started Hours Ago Timing: Constant Reported Blood Pressure Prior To Arrival: 184/98 Associated Signs & Symptoms: Vision Changes, Headaches Current Medications: Beta Jarrell, Diuretic - Allergies/Home Medications Allergies/Adverse Reactions: Allergies Allergy/AdvReac Type Severity Reaction Status Date / Time acetaminophen Allergy GI Upset Verified 07/20/18 14:10 [From Darvocet-N] meperidine [From Demerol] Allergy Vomiting Verified 07/20/18 14:10 propoxyphene Allergy GI Upset Verified 07/20/18 14:10 [From Darvocet-N] Sulfa (Sulfonamide Allergy Rash Verified 07/20/18 14:10 Antibiotics) PMH/Surg Hx/FS Hx/Imm Hx Endocrine/Hematology History: Reports: Hx Diabetes Denies: Hx Thyroid Disease, Hx Anemia Cardiovascular History: Reports: Hx Angina, Hx Hypercholesterolemia, Hx Hypertension, Other Cardiovascular Problems/Disorders - pericarditis, dyslipidemia Denies: Hx Coronary Artery Disease, Hx Myocardial Infarction, Hx Pacemaker/ ICD Respiratory History: Reports: Hx Sleep Apnea Denies: Hx Asthma, Hx Chronic Obstructive Pulmonary Disease (COPD) GI History: Reports: Hx Gastroesophageal Reflux Disease, Other GI Disorders - colonoscopy 2011 polyps removed, hemorroids Denies: Hx Cirrhosis, Hx Jaundice, Hx Ulcer History: Denies: Hx Renal Disease Musculoskeletal History: Reports: Hx Arthritis, Hx Back Problems Denies: Hx Rheumatoid Arthritis, Hx Osteoporosis Sensory History: Reports: Hx Cataracts, Hx Contacts or Glasses Denies: Hx Hearing Aid Opthamlomology History: Reports: Hx Cataracts, Hx Contacts or Glasses Neurological History: Reports: Hx Headaches, Hx Migraine Psychiatric History: Reports: Hx Anxiety, Hx Depression Denies: Hx Panic Disorder - Cancer History Cancer Type, Location and Year: ovarian 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 sinus surgery. tubal. laproscopic exploratory surgeries x 2. polyp removals-COLON. 05/30/2017, HYSTERECTOMY,APPY, PARTIAL COLECTOMY FOR CA Hx Anesthesia Reactions: No Infectious Disease History: No Infectious Disease History: Denies: Hx Clostridium Difficile, Hx Hepatitis, Hx Human Immunodeficiency Virus (HIV), Hx of Known/Suspected MRSA, Hx Shingles, Hx Tuberculosis, Hx Known/ Suspected VRE, Hx Known/Suspected VRSA, History Other Infectious Disease, Traveled Outside the [place] in Last 30 Days - Family History Known Family History: Positive: Cardiac Disease, Other - colon CA - Social History Alcohol Use: None Substance Use Type: Reports: None Smoking Status (MU): Former Smoker Amount Used/How Often: quit 18 years ago Review of Systems Positive: Other - hypertension. Negative: Fever Negative: Chest Pain Negative: Shortness Of Breath Positive: Vomiting, Nausea Positive: Headache All Other Systems Reviewed And Are Negative: Yes Physical Exam - Summary Physical Exam Summary: VITAL SIGNS: Reviewed. GENERAL: Patient is a well-developed and nourished male who is lying comfortable in the stretcher. Patient is not in any acute respiratory distress. HEAD AND FACE: No signs of trauma. No ecchymosis, hematomas or skull depressions. No sinus tenderness. EYES: PERRLA, EOMI x 2, No injected conjunctiva, no nystagmus. EARS: Hearing grossly intact. Ear canals and tympanic membranes are within normal limits. MOUTH: Oropharynx within normal limits. NECK: Supple, trachea is midline, no adenopathy, no JVD, no carotid bruit, no c- spine tenderness, neck with full ROM. CHEST: Symmetric, no tenderness at palpation LUNGS: Clear to auscultation bilaterally. No wheezing or crackles. CVS: Regular rate and rhythm, S1 and S2 present, no murmurs or gallops appreciated. ABDOMEN: Soft, non-tender. No signs of distention. No rebound no guarding, and no masses palpated. Bowel sounds are normal. EXTREMITIES: FROM in all major joints, no edema, no cyanosis or clubbing. NEURO: Alert and oriented x 3. No acute neurological deficits. Speech is normal and follows commands. SKIN: Dry and warm Triage Information Reviewed: Yes Vital Signs On Initial Exam: Initial Vitals Temp Pulse Resp BP Pulse Ox 96.8 F 68 16 173/87 98 07/20/18 14:06 07/20/18 14:06 07/20/18 14:06 07/20/18 14:06 07/20/18 14:06 Vital Signs Reviewed: Yes - García Coma Scale Best Eye Response: 4 - Spontaneous Best Motor Response: 6 - Obeys Commands Best Verbal Response: 5 - Oriented Coma Scale Total: 15 Diagnostics - Vital Signs Vital Signs Temp Pulse Resp BP Pulse Ox 07/20/18 14:06 96.8 F 68 16 173/87 98 - Laboratory Result Diagrams: 07/20/18 15:12 07/20/18 15:12 Lab Statement: Any lab studies that have been ordered have been reviewed, and results considered in the medical decision making process. - CT Brain CT CT Interpretation Completed By: Radiologist - NO ACUTE INTRACRANIAL PATHOLOGY. ED Physician has reviewed this report. - EKG 1434 Cardiac Rate: NL - 65 BPM EKG Rhythm: Sinus Rhythm EKG Interpretation: no ST elevations Hypertension Course/Dx - Course Assessment/Plan: This patient is a 62 year old F presenting to [facility] accompanied by a friend with a chief complaint of headache and nausea with and elevated blood pressure reading. Patient reports neck pain and blurred vision. This morning at 10:15 patients blood pressure was 184/98. She took Imitrex at 09:30 but vomited shortly after. She took Zofran at 10:30. She also took her Lopressor and Protonix this morning. Patient denies fever, chest pain, and SOB. Patient is currently going through chemotherapy and is seen by Dr. Babb. Blood test results without any significant abnormality except for slight anemia , and glucose of 131. In the ED course the patient was given Benadryl and Reglan and morphine for the headache. The patient was given clonidine for the hypertension. After medications the symptoms have improved. She reports that the headaches resolved. At this point the blood pressure is 165/80. The patient feels much better and asymptomatic at this point. A Brain CT reveals: NO ACUTE INTRACRANIAL PATHOLOGY. Therefore the patient will be discharged home with follow-up with primary care physician. I discussed all the findings and test results with the patient. Patient was instructed to return to the emergency room immediately if any of the symptoms return or worsens. Plan of care was discussed with the patient and understands and agrees. All questions were answered at patient satisfaction. There were no further complaints or concerns. Lung exam before discharge: CTA B/L. Good air exchange. No wheezing or crackles heard. CVS: S1 and S2 present. No murmurs appreciated. Patient is alert and oriented x 3. Patient is hemodynamically stable. Patient will be discharged home with follow up PCP in the next 2-3 days - Diagnoses Provider Diagnoses: Uncontrolled hypertension, Headache Discharge - Sign-Out/Discharge Documenting (check all that apply): Patient Departure - discharge - Discharge Plan Condition: Stable Disposition: HOME Patient Education Materials: Hypertension (ED), General Headache (ED) Referrals: Chucky Galvez MD [Primary Care Provider] - 2 Weeks Additional Instructions: FOLLOW UP WITH YOUR PRIMARY CARE PROVIDER WITHIN ONE WEEK FOR HIGH BLOOD PRESSURE NOTED TODAY. RETURN TO EMERGENCY DEPARTMENT FOR ANY WORSENING OR NEW SYMPTOMS. - Billing Disposition and Condition Condition: STABLE Disposition: Home - Attestation Statements Document Initiated by Scribe: Yes Documenting Scribe: Glo Wade Provider For Whom Scribe is Documenting (Include Credential): Zeferino Shannon MD Scribe Attestation: I, Glo Wade, scribed for Zeferino Shannon MD on 07/20/18 at 1844. Scribe Documentation Reviewed: Yes Provider Attestation: The documentation as recorded by the Glo jameson accurately reflects the service I personally performed and the decisions made by me, Zeferino Shannon MD
[2018-07-20] MEDS ORDERED: Morphine INJ* 2 MG/ML 1 ML SYRINGE (TWO MG - NEW SYRINGE VERSION) IV ONE (14:25)
[2018-07-20] MEDS ORDERED: Metoclopramide IV* 5 MG/ML 2 ML VIAL IV ONE (14:25)
[2018-07-20] MEDS ORDERED: diPHENhydraMINE IV* 50 MG/ML 1 ml VIAL (BENADRYL) IV ONE (14:25)
[2018-07-20] MEDS ORDERED: NS 0.9% 1000 ML* 1,000 ML IV ONE (14:25)
[2018-07-20] MEDS ORDERED: Morphine INJ* 4 MG/ML 1 ML SYRINGE (NEW SYRINGE VERSION) ONE (14:35)
--- NOTE | 2018-07-20 15:19 | RAD ---
HISTORY: Headache COMPARISONS: July 16, 2018 TECHNIQUE: Multiple contiguous axial CT scans were obtained of the head without intravenous contrast. FINDINGS: HEMORRHAGE/INFARCT: There is no hemorrhage or acute infarct. MASSES/SHIFT: There is no mass or shift. EXTRA-AXIAL SPACES: There are no extra-axial fluid collections. SULCI AND VENTRICLES: The sulci and ventricles are normal in size and position for the patient's stated age. CEREBRUM: There are no focal parenchymal abnormalities. BRAINSTEM: There are no focal parenchymal abnormalities. CEREBELLUM: There are no focal parenchymal abnormalities. VESSELS: The vessels are grossly normal. PARANASAL SINUSES: There is postsurgical change to the paranasal sinuses. ORBITS: The orbits are unremarkable. BONES AND SOFT TISSUE: No bone or soft tissue abnormalities are noted. OTHER: None IMPRESSION: NO ACUTE INTRACRANIAL PATHOLOGY.
[2018-07-20 15:20] LABS: ABS Basophils 0.1 10^3/ul (0-0.2); ABS Eosinophils 0.1 10^3/ul (0-0.6); ABS Lymphocytes 0.8 10^3/ul (1.0-4.8); ABS Monocytes 0.4 10^3/ul (0-0.8); ABS Neutrophils 5.9 10^3/ul (1.5-7.7); ABS Nucleated RBC 0 10^3/ul; Eosinophil % 0.7 % (0-6); Hematocrit 30 % (35-47); Hemoglobin 10.4 g/dl (12.0-16.0); Lymphocyte % 11.2 % (25-47); Mean Corpuscular HGB Conc 35 g/dl (31-36); Mean Corpuscular Hemoglobin 29 pg (27-31); Mean Corpuscular Volume 82 fL (80-97); Mean Platelet Volume 6.9 um3 (7.4-10.4); Nucleated Red Blood Cells % 0; Platelet Count 140 10^3/ul (150-450); Red Blood Count 3.63 10^6/ul (4.00-5.40); Red Cell Distribution Width 16 % (10.5-15); White Blood Count 7.1 10^3/ul (3.5-10.8)
[2018-07-20 16:20] LABS: EGFR Non-African American 65.3 (>60)
[2018-07-20] MEDS ORDERED: cloNIDine TAB* 0.1 MG PO ONE (17:04)
[2018-07-20 17:49] VITALS: BP 172/85
== END 2018-07-20 17:48 | disposition home or self-care (01) ==
LOC: ED 14:03
DX: I10 Essential (primary) hypertension (principal); R51 Headache; R11.2 Nausea with vomiting, unspecified
CPT/HCPCS: 36415; 70450; 80053; 82375; 83605; 83735; 85025; 85652; 85730; 93005; 96374; 96375; 99283; A9270-GY; J1200; J1642; J2270; J2765

== ENCOUNTER 2018-07-24 16:06 | Emergency (ER) | payer BC ==
[2018-07-24] MEDS ORDERED: PROCHLORPERAZINE INJ 5 MG/ML 2 ML VIAL IV ONE (16:43)
[2018-07-24] MEDS ORDERED: diPHENhydraMINE IV* 50 MG/ML 1 ml VIAL (BENADRYL) IV ONE (16:43)
[2018-07-24] MEDS ORDERED: Morphine INJ* 4 MG/ML 1 ML SYRINGE (NEW SYRINGE VERSION) IV ONE (16:44)
[2018-07-24] MEDS ORDERED: Al Hydrox/Mg Hydrox/Simet LIQ* 30 ML UDC PO ONE (16:44)
[2018-07-24] MEDS ORDERED: NS 0.9% 1000 ML* 1,000 ML IV ONE (16:44)
[2018-07-24] MEDS ORDERED: Famotidine IV* 10 MG/ML 2 ML (20 mg) IV SLOW PU ONE (16:44)
--- NOTE | 2018-07-24 17:17 | ED ---
Headache - HPI Summary HPI Summary: 1 is to so - History Of Current Complaint Chief Complaint: EDHeadache Stated Complaint: N/V W/ HEADACHE Time Seen by Provider: 07/24/18 16:30 - Allergies/Home Medications Allergies/Adverse Reactions: Allergies Allergy/AdvReac Type Severity Reaction Status Date / Time meperidine [From Demerol] Allergy Vomiting Verified 07/24/18 16:31 propoxyphene Allergy GI Upset Verified 07/24/18 16:31 [From Darvocet-N] Sulfa (Sulfonamide Allergy Rash Verified 07/24/18 16:31 Antibiotics) PMH/Surg Hx/FS Hx/Imm Hx Endocrine/Hematology History: Reports: Hx Diabetes Denies: Hx Thyroid Disease, Hx Anemia Cardiovascular History: Reports: Hx Angina, Hx Hypercholesterolemia, Hx Hypertension, Other Cardiovascular Problems/Disorders - pericarditis, dyslipidemia Denies: Hx Coronary Artery Disease, Hx Myocardial Infarction, Hx Pacemaker/ ICD Respiratory History: Reports: Hx Sleep Apnea Denies: Hx Asthma, Hx Chronic Obstructive Pulmonary Disease (COPD) GI History: Reports: Hx Gastroesophageal Reflux Disease, Other GI Disorders - colonoscopy 2010 polyps removed, hemorroids Denies: Hx Cirrhosis, Hx Jaundice, Hx Ulcer History: Denies: Hx Renal Disease Musculoskeletal History: Reports: Hx Arthritis, Hx Back Problems Denies: Hx Rheumatoid Arthritis, Hx Osteoporosis Sensory History: Reports: Hx Cataracts, Hx Contacts or Glasses Denies: Hx Hearing Aid Opthamlomology History: Reports: Hx Cataracts, Hx Contacts or Glasses Neurological History: Reports: Hx Headaches, Hx Migraine Psychiatric History: Reports: Hx Anxiety, Hx Depression Denies: Hx Panic Disorder - Cancer History Cancer Type, Location and Year: ovarian 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 sinus surgery. tubal. laproscopic exploratory surgeries x 2. 05/30/2017, HYSTERECTOMY,APPY, PARTIAL COLECTOMY FOR CA. POWER PORT Hx Anesthesia Reactions: No Infectious Disease History: No Infectious Disease History: Denies: Hx Clostridium Difficile, Hx Hepatitis, Hx Human Immunodeficiency Virus (HIV), Hx of Known/Suspected MRSA, Hx Shingles, Hx Tuberculosis, Hx Known/ Suspected VRE, Hx Known/Suspected VRSA, History Other Infectious Disease, Traveled Outside the [place] in Last 30 Days - Family History Known Family History: Positive: Cardiac Disease, Other - colon CA - Social History Alcohol Use: None Substance Use Type: Reports: None Smoking Status (MU): Former Smoker Amount Used/How Often: quit 18 years ago Physical Exam Vital Signs On Initial Exam: Initial Vitals BP 173/75 07/24/18 16:21 Diagnostics - Vital Signs Vital Signs Temp Pulse Resp BP Pulse Ox 07/24/18 16:58 18 07/24/18 16:23 98.3 F 77 19 176/75 96 07/24/18 16:21 173/75 - Laboratory Lab Statement: Any lab studies that have been ordered have been reviewed, and results considered in the medical decision making process. Discharge - Discharge Plan Referrals: Chucky Galvez MD [Primary Care Provider] -
--- NOTE | 2018-07-24 19:21 | ED ---
Headache - HPI Summary HPI Summary: Patient complains of headache, nausea, photophobia starting today. Also complaining of intermittent right upper quadrant pain, lasting seconds, worst 3/ 10 pain, x months, no active abdominal pain here in the ED today. Patient has history of migraines, with multiple recent visits for same. Is currently on chemotherapy treatment for cervical cancer with metastases to liver and brain. Brain MRI 07/23/[address] abdomen and pelvis 05/03/18 positive for metastases to liver.. CT abdomen and pelvis scheduled for tomorrow with oncology. Patient also states blood pressures been elevated lately, states oncology believes this is due to one of her chemotherapy medications and they are seeking alternative. Denies fever, neck pain or stiffness, cough, sore throat, CP, SOB, V/D, change in urine, change in BM. Medical history is HDL, DM 2, sleep apnea, cervical cancer. - History Of Current Complaint Chief Complaint: EDHeadache Stated Complaint: N/V W/ HEADACHE Time Seen by Provider: 07/24/18 16:30 Hx Obtained From: Patient, Family/[employer] Onset/Duration: Gradual Onset Initially Headache Was: Moderate Currently Pain Is: Moderate Timing: Constant, Hours Character: Sharp, Throbbing Location of Headache: Diffuse Aggravating Factor: Bright Lights Allevating Factors: Nothing Associated Signs And Symptoms: Nausea - Allergies/Home Medications Allergies/Adverse Reactions: Allergies Allergy/AdvReac Type Severity Reaction Status Date / Time meperidine [From Demerol] Allergy Vomiting Verified 07/24/18 16:31 propoxyphene Allergy GI Upset Verified 07/24/18 16:31 [From Darvocet-N] Sulfa (Sulfonamide Allergy Rash Verified 07/24/18 16:31 Antibiotics) PMH/Surg Hx/FS Hx/Imm Hx Endocrine/Hematology History: Reports: Hx Diabetes Denies: Hx Thyroid Disease, Hx Anemia Cardiovascular History: Reports: Hx Angina, Hx Hypercholesterolemia, Hx Hypertension, Other Cardiovascular Problems/Disorders - pericarditis, dyslipidemia Denies: Hx Coronary Artery Disease, Hx Myocardial Infarction, Hx Pacemaker/ ICD Respiratory History: Reports: Hx Sleep Apnea Denies: Hx Asthma, Hx Chronic Obstructive Pulmonary Disease (COPD) GI History: Reports: Hx Gastroesophageal Reflux Disease, Other GI Disorders - colonoscopy 2010 polyps removed, hemorroids Denies: Hx Cirrhosis, Hx Jaundice, Hx Ulcer History: Denies: Hx Renal Disease Musculoskeletal History: Reports: Hx Arthritis, Hx Back Problems Denies: Hx Rheumatoid Arthritis, Hx Osteoporosis Sensory History: Reports: Hx Cataracts, Hx Contacts or Glasses Denies: Hx Hearing Aid Opthamlomology History: Reports: Hx Cataracts, Hx Contacts or Glasses Neurological History: Reports: Hx Headaches, Hx Migraine Psychiatric History: Reports: Hx Anxiety, Hx Depression Denies: Hx Panic Disorder - Cancer History Cancer Type, Location and Year: ovarian 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 sinus surgery. tubal. laproscopic exploratory surgeries x 2. 05/30/2017, HYSTERECTOMY,APPY, PARTIAL COLECTOMY FOR CA. POWER PORT Hx Anesthesia Reactions: No Infectious Disease History: No Infectious Disease History: Denies: Hx Clostridium Difficile, Hx Hepatitis, Hx Human Immunodeficiency Virus (HIV), Hx of Known/Suspected MRSA, Hx Shingles, Hx Tuberculosis, Hx Known/ Suspected VRE, Hx Known/Suspected VRSA, History Other Infectious Disease, Traveled Outside the [place] in Last 30 Days - Family History Known Family History: Positive: Cardiac Disease, Other - colon CA - Social History Alcohol Use: None Substance Use Type: Reports: None Smoking Status (MU): Former Smoker Amount Used/How Often: quit 18 years ago Review of Systems Constitutional: Negative Positive: Photophobia ENT: Negative Cardiovascular: Negative Respiratory: Negative Positive: Nausea Genitourinary: Negative Musculoskeletal: Negative Skin: Negative Positive: Headache Psychological: Normal All Other Systems Reviewed And Are Negative: Yes Physical Exam - Summary Physical Exam Summary: Neuro exam normal. Patient alert and oriented responding appropriately. Abdomen soft nontender throughout. Triage Information Reviewed: Yes Vital Signs On Initial Exam: Initial Vitals BP 173/75 07/24/18 16:21 Vital Signs Reviewed: Yes Appearance: Positive: Well-Appearing Skin: Positive: Warm Head/Face: Positive: Normal Head/Face Inspection Eyes: Positive: Normal Neck: Positive: Supple Respiratory/Lung Sounds: Positive: Clear to Auscultation Cardiovascular: Positive: Normal Abdomen Description: Positive: Nontender Musculoskeletal: Positive: Normal Neurological: Positive: Normal Psychiatric: Positive: Normal AVPU Assessment: Alert - García Coma Scale Best Eye Response: 4 - Spontaneous Best Motor Response: 6 - Obeys Commands Best Verbal Response: 5 - Oriented Coma Scale Total: 15 Diagnostics - Vital Signs Vital Signs Temp Pulse Resp BP Pulse Ox 07/24/18 18:21 72 152/80 96 07/24/18 18:00 74 97 07/24/18 17:51 74 151/105 95 07/24/18 17:21 74 172/87 95 07/24/18 17:00 78 96 07/24/18 16:58 18 07/24/18 16:52 73 97 07/24/18 16:51 71 170/82 97 07/24/18 16:23 98.3 F 77 19 176/75 96 07/24/18 16:21 173/75 - Laboratory Lab Statement: Any lab studies that have been ordered have been reviewed, and results considered in the medical decision making process. Headache Course/Dx - Course Course Of Treatment: Patient complains of headache, nausea, photophobia starting today. Also complaining of intermittent right upper quadrant pain, lasting seconds, worst 3/10 pain, x months, no active abdominal pain here in the ED today. Patient has history of migraines, with multiple recent visits for same. Is currently on chemotherapy treatment for cervical cancer with metastases to liver and brain. Brain MRI 07/23/[address] abdomen and pelvis 05/03/18 positive for metastases to liver.. CT abdomen and pelvis scheduled for tomorrow with oncology. Patient also states blood pressures been elevated lately, states oncology believes this is due to one of her chemotherapy medications and they are seeking alternative. Denies fever, neck pain or stiffness, cough, sore throat, CP, SOB, V/D, change in urine, change in BM. Medical history is HDL, DM 2, sleep apnea, cervical cancer. Physical exam: Neuro exam normal. Patient alert and oriented responding appropriately. Abdomen soft nontender throughout. Mildly elevated blood pressure intermittently. Vital signs otherwise normal. Headache pain improved from 8/ 10 to 2/10. Nausea controlled. Follow up with oncology and primary care. - Diagnoses Provider Diagnoses: Migraine Discharge - Sign-Out/Discharge Documenting (check all that apply): Patient Departure - Discharge Plan Condition: Stable Disposition: HOME Patient Education Materials: Migraine Headache (ED) Referrals: Chucky Galvez MD [Primary Care Provider] - Additional Instructions: Follow-up with primary care. Return to the ED for any new or worsening symptoms - Billing Disposition and Condition Condition: STABLE Disposition: Home
[2018-07-24 19:55] VITALS: BP 149/78
== END 2018-07-24 19:53 | disposition home or self-care (01) ==
LOC: ED 16:06
DX: G43.909 Migraine, unspecified, not intractable, without status migrainosus (principal); R11.0 Nausea; Z87.891 Personal history of nicotine dependence
CPT/HCPCS: 99283; A9270-GY; J0780; J1200; J2270

== ENCOUNTER 2018-07-30 14:08 | Observation (INO) | payer BC ==
[2018-07-30] MEDS ORDERED: Acetaminophen TAB* 325 MG PO PRN (14:20)
[2018-07-30] MEDS ORDERED: Morphine VIAL* 4 MG/ML VIAL (1 ml vial) IV PRN (14:20)
[2018-07-30] MEDS: Butalb/Acetamin/Caff TAB* 1 TAB PO PRN ×2 (15:58→21:41)
[2018-07-30] MEDS: NS 0.9% 1000 ML* 1,000 ML IV SCH (15:59)
[2018-07-30] MEDS: Ondansetron ODT TAB* 4 MG SL PRN (15:59)
[2018-07-30] MEDS ORDERED: Enoxaparin(*) 40 MG/0.4 ML SYR SUBCUT SCH (16:00)
[2018-07-30] MEDS ORDERED: Prochlorperazine TAB* 10 MG PO PRN (19:30)
[2018-07-30] MEDS: Ondansetron INJ* 2 MG/ML VIAL IV PRN (19:38)
[2018-07-30] MEDS ORDERED: Atorvastatin* 20 MG TAB PO SCH (21:00)
[2018-07-30] MEDS: glipiZIDE TAB.XL* 5 MG PO SCH (21:17)
[2018-07-30] MEDS: Gabapentin CAP(*) 300 MG PO SCH (21:41)
[2018-07-30] MEDS: Metoprolol Tartrate TAB* 25 MG PO SCH (21:41)
[2018-07-30] MEDS: LORazepam INJ* 2 MG/ML 1 ML VIAL IV PUSH PRN (21:42)
[2018-07-30] MEDS: metFORMIN* 500 MG TAB PO SCH (21:42)
[2018-07-31] MEDS: NS 0.9% 1000 ML* 1,000 ML IV SCH (05:10)
[2018-07-31 06:01] LABS: ABS Basophils 0 10^3/ul (0-0.2); ABS Eosinophils 0.1 10^3/ul (0-0.6); ABS Lymphocytes 1.3 10^3/ul (1.0-4.8); ABS Monocytes 0.4 10^3/ul (0-0.8); ABS Nucleated RBC 0 10^3/ul; Eosinophil % 2.5 % (0-6); Hematocrit 25 % (35-47); Hemoglobin 8.7 g/dl (12.0-16.0); Lymphocyte % 33.7 % (25-47); Mean Corpuscular HGB Conc 35 g/dl (31-36); Mean Corpuscular Hemoglobin 29 pg (27-31); Mean Corpuscular Volume 83 fL (80-97); Mean Platelet Volume 6.6 um3 (7.4-10.4); Nucleated Red Blood Cells % 0; Platelet Count 159 10^3/ul (150-450); Red Blood Count 2.97 10^6/ul (4.00-5.40); Red Cell Distribution Width 16 % (10.5-15); White Blood Count 3.8 10^3/ul (3.5-10.8)
[2018-07-31 06:08] LABS: INR 0.96 (0.77-1.02)
[2018-07-31 06:15] LABS: EGFR Non-African American 59.1 (>60)
[2018-07-31] MEDS ORDERED: Omeprazole CAP* 20 MG PO SCH (07:30)
[2018-07-31] MEDS: LORazepam INJ* 2 MG/ML 1 ML VIAL IV PUSH PRN (07:48)
[2018-07-31] MEDS: Ondansetron ODT TAB* 4 MG SL PRN (07:50)
[2018-07-31] MEDS: Gabapentin CAP(*) 300 MG PO SCH (08:21)
[2018-07-31] MEDS: Metoprolol Tartrate TAB* 25 MG PO SCH (08:22)
[2018-07-31] MEDS: metFORMIN* 500 MG TAB PO SCH (08:23)
[2018-07-31] MEDS: glipiZIDE TAB.XL* 5 MG PO SCH (08:23)
[2018-07-31] MEDS ORDERED: amLODIPine TAB* 5 MG PO SCH (09:00)
[2018-07-31] MEDS ORDERED: Magnesium Oxide TAB* 400 MG PO SCH (09:00)
[2018-07-31] MEDS ORDERED: BuPROPion XL* 300 MG TAB.XL PO SCH (09:00)
[2018-07-31 09:50] VITALS: BP 150/78
[2018-07-31 10:57] LABS: Hematocrit 24 % (35-47); Hemoglobin 8.3 g/dl (12.0-16.0)
[2018-07-31] MEDS ORDERED: Lisinopril TAB* 5 MG PO SCH (12:00)
[2018-07-31] MEDS: Butalb/Acetamin/Caff TAB* 1 TAB PO PRN (12:18)
[2018-07-31] MEDS: Ondansetron INJ* 2 MG/ML VIAL IV PRN (12:26)
--- NOTE | 2018-08-01 08:20 | DS ---
CC: Dr. Chucky Galvez; Dr. Peg Joseph* DISCHARGE SUMMARY: DATE OF ADMISSION: 07/30/18 DATE OF DISCHARGE: 07/31/18 PRIMARY CARE PROVIDER: Dr. Chucky Galvez. PRIMARY ONCOLOGIST: Dr. Peg Joseph. ATTENDING PHYSICIAN: Dr. Socrates Babb* (dictated by ESTEFANY Elizondo). PRIMARY DISCHARGE DIAGNOSES: 1. Intractable headache. 2. Uncontrolled hypertension. SECONDARY DISCHARGE DIAGNOSES: 1. Recurrent ovarian cancer. 2. Aqb-qtgvods-boqlcaort diabetes. DISCHARGE MEDICATIONS: 1. Aspirin 81 mg p.o. daily. 2. Wellbutrin 300 mg p.o. daily. 3. Trulicity 1.5 mg subcu weekly. 4. Gabapentin 300 mg p.o. twice daily. 5. Glipizide 10 mg p.o. twice daily. 6. Lorazepam 0.5 mg p.o. 3 times daily. 7. Metformin 500 mg p.o. twice daily. 8. Metoprolol tartrate 25 mg p.o. twice daily. 9. Protonix 80 mg p.o. daily. 10. Simvastatin 40 mg p.o. at bedtime. 11. Amlodipine 10 mg p.o. daily. 12. Fioricet 1 tablet p.o. q.4 hours as needed for headache. 13. Lisinopril 5 mg p.o. daily. 14. Ondansetron 4 mg sublingual q.6 hours as needed nausea and vomiting. Medication changes: 1. Increase amlodipine. 2. Start Fioricet p.r.n. 3. Start lisinopril. 4. Start Zofran. HOSPITAL IMAGING: None. HOSPITAL COURSE: This is a very pleasant 62-year-old female with recurrent ovarian cancer, who has had multiple encounters for severe headaches and hypertension, who presented to the oncology office yesterday with complaints of recurrent headache, nausea, and vomiting. The patient received supportive care measures in the oncology suite, but unfortunately was still quite symptomatic and was admitted to the hospital for a period of observation overnight. The patient's blood pressure was initially quite high measured at approximately 195/ 100 mmHg yesterday in the oncology suite. Blood pressure did improve somewhat with control of her headache, but still remained elevated. The patient was given antiemetics, morphine, and a fluid bolus followed by IV magnesium, Toradol , and Ativan in oncology suite with very little change in symptoms. When she reached the floor, she was given Fioricet, which did seem to help her headache. The patient did have an outpatient 24-hour urine, which did demonstrate 3 g of protein. Her hypertension and proteinuria is likely related to her Avastin therapy, which has been since discontinued. The patient had no complications during her hospitalization and has a mild headache at the time of discharge with systolic pressures averaging in the 150s. During her hospitalization, she was started on lisinopril and the dose of her amlodipine was increased. Also, of note, the patient's hemoglobin had dropped from 10.5 to 8.7 g/dL in a 24-hour period. This was thought to most likely be a result of her fluid that she had received and mostly reflecting a dilutional effect. She had no signs of GI bleeding. DISPOSITION AND FOLLOWUP PLAN: The patient is being discharged to home with medications as listed above. She will follow up with Kellee Hernandez NP, in the oncology office next 08/06/18. At that time, she will require repeat CBC, blood pressure check, and recommend a basic metabolic panel she was newly started on lisinopril. The patient is scheduled for chemotherapy on 08/08, determination for whether this is appropriate will be made at her office followup on the 08/06/18. ESTEFANY ELIZONDO [id number]/[facility] #: [id number] MTDD
[2018-08-04] MEDS ORDERED: Dulaglutide (NF) 1.5 MG/0.5 ML SYRINGE SUBCUT SCH (09:00)
== END 2018-07-31 14:10 | disposition home or self-care (01) ==
LOC: MED 15:23
PROVIDERS: ADMIT Internal Medicine Hematology & Oncology; ATTEND Internal Medicine Hematology & Oncology
DX: R51 Headache (principal); I10 Essential (primary) hypertension; C56.9 Malignant neoplasm of unspecified ovary; R10.11 Right upper quadrant pain; E11.9 Type 2 diabetes mellitus without complications; Z79.82 Long term (current) use of aspirin; Z79.84 Long term (current) use of oral hypoglycemic drugs; Z79.899 Other long term (current) drug therapy; Z88.2 Allergy status to sulfonamides; Z88.8 Allergy status to other drugs, medicaments and biological substances; R11.2 Nausea with vomiting, unspecified
CPT/HCPCS: 36415; 80053; 83735; 85014; 85018; 85025; 85610; 85730; 96361; 96374; 96375; 96376; 99217; 99219; A9270-GY; G0378; J1642; J1650; J2060; J2405

== ENCOUNTER 2018-09-25 02:33 | Emergency (ER) | payer BC ==
--- NOTE | 2018-09-25 03:02 | ED ---
GI/ HPI - HPI Summary HPI Summary: This patient is a 62 year old F presenting to [facility] accompanied by her with a chief complaint of n/v that began at 2300 last night. The patient rates the pain 5/10 in severity. Patient reports ABD pain secondary to vomiting. Patient denies fever and diarrhea. Pt with Ovarian CA, last chemo treatment was on 09/19/18. She has a rx for zofran but cannot keep it down. She reports her nausea is worse than usual s/p treatment. Last BM was this morning and normal consistency. Her last CT ABD/Pelvis was 2 months ago and has another scheduled in 5 days. - History of Current Complaint Chief Complaint: EDNauseaVomitDiarrh Time Seen by Provider: 09/25/18 02:56 Stated Complaint: VOMITING AND HEADACHE Hx Obtained From: Patient Onset/Duration: Started Hours Ago, Still Present Timing: Constant Severity: Moderate Current Severity: Moderate Pain Intensity: 5 Location of Pain: Diffuse Associated Signs and Symptoms: Positive: Nausea, Vomiting - Additional Pertinent History Primary Care Physician: JUAN - Allergy/Home Medications Allergies/Adverse Reactions: Allergies Allergy/AdvReac Type Severity Reaction Status Date / Time meperidine [From Demerol] Allergy Vomiting Verified 09/25/18 02:43 propoxyphene Allergy GI Upset Verified 09/25/18 02:43 [From Darvocet-N] Sulfa (Sulfonamide Allergy Rash Verified 09/25/18 02:43 Antibiotics) PMH/Surg Hx/FS Hx/Imm Hx Endocrine/Hematology History: Reports: Hx Diabetes Denies: Hx Thyroid Disease, Hx Anemia Cardiovascular History: Reports: Hx Angina, Hx Hypercholesterolemia, Hx Hypertension, Other Cardiovascular Problems/Disorders - pericarditis, dyslipidemia Denies: Hx Coronary Artery Disease, Hx Myocardial Infarction, Hx Pacemaker/ ICD Respiratory History: Reports: Hx Sleep Apnea - bipap Denies: Hx Asthma, Hx Chronic Obstructive Pulmonary Disease (COPD) GI History: Reports: Hx Gastroesophageal Reflux Disease, Other GI Disorders - colonoscopy 2011 polyps removed, hemorroids Denies: Hx Cirrhosis, Hx Jaundice, Hx Ulcer History: Denies: Hx Renal Disease Musculoskeletal History: Reports: Hx Arthritis, Hx Back Problems Denies: Hx Rheumatoid Arthritis, Hx Osteoporosis Sensory History: Reports: Hx Cataracts, Hx Contacts or Glasses Denies: Hx Hearing Aid Opthamlomology History: Reports: Hx Cataracts, Hx Contacts or Glasses Neurological History: Reports: Hx Headaches, Hx Migraine Psychiatric History: Reports: Hx Anxiety, Hx Depression Denies: Hx Panic Disorder - Cancer History Cancer Type, Location and Year: ovarian cancer WITH METASTISIS TO PERITONEUM Hx Chemotherapy: Yes Hx Radiation Therapy: No Hx Palliative Cancer Treatment: No - Surgical History Surgery Procedure, Year, and Place: hemorrhoidectomy. sinus surgery. tubal. laproscopic exploratory surgeries x 2. 05/30/2017, HYSTERECTOMY,APPY, PARTIAL COLECTOMY + BOWEL RESECTION FOR CA. POWER PORT Hx Anesthesia Reactions: No Infectious Disease History: No Infectious Disease History: Denies: Hx Clostridium Difficile, Hx Hepatitis, Hx Human Immunodeficiency Virus (HIV), Hx of Known/Suspected MRSA, Hx Shingles, Hx Tuberculosis, Hx Known/ Suspected VRE, Hx Known/Suspected VRSA, History Other Infectious Disease, Traveled Outside the [place] in Last 30 Days - Family History Known Family History: Positive: Cardiac Disease, Other - colon CA - Social History Alcohol Use: None Substance Use Type: Reports: None Smoking Status (MU): Former Smoker Amount Used/How Often: quit 18 years ago Have You Smoked in the Last Year: No Review of Systems Negative: Fever Positive: Abdominal Pain, Vomiting, Nausea. Negative: Diarrhea All Other Systems Reviewed And Are Negative: Yes Physical Exam - Summary Physical Exam Summary: VITAL SIGNS: Reviewed. GENERAL: Patient is a ill looking female who is lying comfortable in the stretcher. Patient is not in any acute respiratory distress. HEAD AND FACE: No signs of trauma. No ecchymosis, hematomas or skull depressions. No sinus tenderness. EYES: PERRLA, EOMI x 2, No injected conjunctiva, no nystagmus. EARS: Hearing grossly intact. Ear canals and tympanic membranes are within normal limits. MOUTH: Oropharynx within normal limits. NECK: Supple, trachea is midline, no adenopathy, no JVD, no carotid bruit, no c- spine tenderness, neck with full ROM. CHEST: Symmetric, no tenderness at palpation LUNGS: Clear to auscultation bilaterally. No wheezing or crackles. CVS: Regular rate and rhythm, S1 and S2 present, no murmurs or gallops appreciated. ABDOMEN: Soft, non-tender. No signs of distention. No rebound no guarding, and no masses palpated. Bowel sounds are normal. EXTREMITIES: FROM in all major joints, no edema, no cyanosis or clubbing. NEURO: Alert and oriented x 3. No acute neurological deficits. Speech is normal and follows commands. SKIN: pallor Triage Information Reviewed: Yes Vital Signs On Initial Exam: Initial Vitals Temp Pulse Resp BP Pulse Ox 98.0 F 98 16 182/102 98 09/25/18 02:35 09/25/18 02:35 09/25/18 02:35 09/25/18 02:35 09/25/18 02:35 Vital Signs Reviewed: Yes Diagnostics - Vital Signs Vital Signs Temp Pulse Resp BP Pulse Ox 09/25/18 02:35 98.0 F 98 16 182/102 98 - Laboratory Result Diagrams: 09/25/18 03:36 09/25/18 03:36 Lab Statement: Any lab studies that have been ordered have been reviewed, and results considered in the medical decision making process. - CT CT ABD/Pelvis CT Interpretation Completed By: Radiologist Summary of CT Findings: 1. Right basilar atelectasis. 2. No pulmonary nodule or masses. 3. Mild cardiomegaly. 1. Approximately 5.4 x 5.2 cm hypodense mass with nodular peripheral. enhancement in the right hepatic lobe. Differential diagnosis includes. cavernous hemangioma, cholangiocarcinoma and metastasis. If clinically. indicated, further evaluation with CT or MRI of liver protocol to be considered. 2. Findings suggestive of acute calculus cholecystitis. 3. A 5 mm calcific density in the common bile duct which may represent a stone. If clinically indicated, further evaluation with MRCP may be considered. 4. Large fecal load. ED physician has reviewed this radiology report. Re-Evaluation - Re-Evaluation First Eval Re-Evaluation Time: 06:20 Change: Unchanged Comment: I reviewed the results of the CT with the patient and she is aware that there is a malignant tumor over her liver. US will be ordered. She does have mild RUQ tenderness with deep palpation. GIGU Course/Dx - Course Assessment/Plan: This patient is a 62 year old F [facility] her with a chief complaint of n/v that began at 2300 last night. The patient rates the pain 5/10 in severity. Patient reports ABD pain secondary to vomiting. Patient denies fever and diarrhea. Pt with Ovarian CA, last chemo treatment was on 09/19/18. She has a rx for zofran but cannot keep it down. She reports her nausea is worse than usual s/p treatment. Last BM was this morning and normal consistency. Her last CT ABD/Pelvis was 2 months ago and has another scheduled in [address] ABD pelvis reveals, per radiologist , 1. Right basilar atelectasis. 2. No pulmonary nodule or masses. 3. Mild cardiomegaly. 1. Approximately 5.4 x 5.2 cm hypodense mass with nodular peripheral. enhancement in the right hepatic lobe. Differential diagnosis includes. cavernous hemangioma, cholangiocarcinoma and metastasis. If clinically. indicated, further evaluation with CT or MRI of liver protocol to be considered. 2. Findings suggestive of acute calculus cholecystitis. 3. A 5 mm calcific density in the common bile duct which may represent a stone. If clinically indicated, further evaluation with MRCP may be considered. 4. Large fecal load. The patient will be signed out to Dr. Shannon awaiting US. - Diagnoses Provider Diagnoses: Nausea & vomiting, Ovarian cancer Discharge - Sign-Out/Discharge Documenting (check all that apply): Sign-Out Patient Signing out patient TO: Zeferino Shannon - Discharge Plan Condition: Fair Referrals: Chucky Galvez MD [Primary Care Provider] - - Attestation Statements Document Initiated by Scribe: Yes Documenting Scribe: Alireza Barrera Provider For Whom Sean is Documenting (Include Credential): Mendez Matthews MD Scribe Attestation: Alireza Stark , scribed for Mendez Matthews MD on 09/25/18 at 0639. Status of Scribe Document: Ready
[2018-09-25] MEDS ORDERED: NS 0.9% 1000 ML* 2,000 ML IV ONE (03:14)
[2018-09-25] MEDS ORDERED: Metoclopramide IV* 5 MG/ML 2 ML VIAL IV SLOW PU ONE (03:16)
[2018-09-25] MEDS ORDERED: Ondansetron INJ* 2 MG/ML VIAL IV ONE (03:16)
[2018-09-25 03:44] LABS: ABS Basophils 0 10^3/ul (0-0.2); ABS Eosinophils 0 10^3/ul (0-0.6); ABS Lymphocytes 0.3 10^3/ul (1.0-4.8); ABS Monocytes 0 10^3/ul (0-0.8); ABS Neutrophils 1.3 10^3/ul (1.5-7.7); ABS Nucleated RBC 0 10^3/ul; Eosinophil % 0.6 %; Hematocrit 23 % (35-47); Hemoglobin 8.1 g/dl (12.0-16.0); Lymphocyte % 16.4 %; Mean Corpuscular HGB Conc 35 g/dl (31-36); Mean Corpuscular Hemoglobin 30 pg (27-31); Mean Corpuscular Volume 85 fL (80-97); Nucleated Red Blood Cells % 0; Platelet Count 109 10^3/ul (150-450); Red Blood Count 2.73 10^6/ul (4.00-5.40); Red Cell Distribution Width 16 % (10.5-15); White Blood Count 1.6 10^3/ul (3.5-10.8)
[2018-09-25 03:52] LABS: INR 0.96 (0.77-1.02)
[2018-09-25 03:59] LABS: EGFR Non-African American 66.2 (>60)
[2018-09-25] MEDS ORDERED: Iodixanol* (CONTRAST) 320 MG/ML 100 ML SDV IV ONE (04:15)
[2018-09-25] MEDS ORDERED: Morphine VIAL* 4 MG/ML VIAL (1 ml vial) IV ONE (06:18)
[2018-09-25 06:55] LABS: Urine Appearance Cloudy; Urine Blood Negative (Negative); Urine Color Yellow; Urine Ketones Negative (Negative); Urine Protein 3+(>=500 mg/dL) (Negative); Urine Red Blood Cell Absent (Absent); Urine Urobilinogen Negative (Negative); Urine White Blood Cell Trace(0-5/hpf) (Absent)
--- NOTE | 2018-09-25 07:21 | ED ---
Progress - Progress Note Progress Note: Patient is received as a sign out from Dr. Matthews to Dr. Shannon at 0700 09/25/18 shift change pending gallbladder US. 0850 - patient is alert and oriented, no abdominal pain, tolerated PO well, no N /V at this time. GALLBLADDER US IMPRESSION: 1. NORMAL EXAMINATION OF THE GALLBLADDER. 2. HYPERECHOIC MASS IN THE RIGHT HEPATIC LOBE WHICH IS STABLE NOTED CONSISTENT WITH A HEMANGIOMA. Re-Evaluation - Re-Evaluation First Eval Re-Evaluation Time: 06:20 Change: Unchanged Comment: I reviewed the results of the CT with the patient and she is aware that there is a malignant tumor over her liver. US will be ordered. She does have mild RUQ tenderness with deep palpation. Second Eval Re-Evaluation Time: 08:50 Change: Improved Comment: patient is alert and oriented, no abdominal pain, tolerated PO well, no N/V at this time. Patient to discharged to home, patient is agreeable Course/Dx - Course Course Of Treatment: This patient was signed out to Dr. Matthews at shift change. He reports that this patient is a 62-year-old female who is awaiting a right upper quadrant ultrasound to rule out acute cholecystitis. The right upper quadrant ultrasound impression: Normal examination of the gallbladder. Hypercaloric mass in the right pedicle of which is stable as noted consistent with a hemangioma. Blood work without any significant abnormality except for WBCs 1.6, chronic anemia, glucose of 170, magnesium 1.8, amylase 114 and lipase less than 10. Urinalysis contaminated. Upon reassessment the patient is a pale female with no nausea vomiting, all her symptoms are resolved. The patient is tolerating by mouth without any nausea vomiting. Since the patient does not have any pain and the right upper quadrant ultrasound shows no acute cholecystitis, the patient will be discharged home with follow-up with primary care physician and oncology. Patient was recommended to return to the emergency department if she develops any pain, nausea vomiting, continues with diarrhea, develops any fever or any other complaint. - Diagnoses Provider Diagnoses: Nausea & vomiting Discharge - Sign-Out/Discharge Documenting (check all that apply): Patient Departure - discharge - Discharge Plan Condition: Stable Disposition: HOME Patient Education Materials: Acute Nausea and Vomiting (ED) Referrals: Chucky Galvze MD [Primary Care Provider] - 3 Days Additional Instructions: RETURN TO ED FOR NEW OR WORSENING SYMPTOMS. FOLLOW UP YOURE YOUR PRIMARY CARE PHYSICIAN IN 2-3 DAYS. - Billing Disposition and Condition Condition: STABLE Disposition: Home - Attestation Statements Document Initiated by Sean: Yes Documenting Scribe: DEBORA FOSTER Provider For Whom Sean is Documenting (Include Credential): CARLEE SHANNON MD Scribe Attestation: IDEBORA , scribed for CARLEE SHANNON MD on 09/27/18 at 2126. Scribe Documentation Reviewed: Yes Provider Attestation: The documentation as recorded by the DEBORA jameson accurately reflects the service I personally performed and the decisions made by me, CARLEE SHANNON MD Status of Scribe Document: Viewed
[2018-09-25 09:40] VITALS: BP 159/93
== END 2018-09-25 09:38 | disposition home or self-care (01) ==
LOC: ED 02:33
DX: R11.2 Nausea with vomiting, unspecified (principal); C56.9 Malignant neoplasm of unspecified ovary; Z87.891 Personal history of nicotine dependence; E11.9 Type 2 diabetes mellitus without complications; E78.00 Pure hypercholesterolemia, unspecified; I10 Essential (primary) hypertension; I20.9 Angina pectoris, unspecified; K21.9 Gastro-esophageal reflux disease without esophagitis; C78.6 Secondary malignant neoplasm of retroperitoneum and peritoneum
CPT/HCPCS: 36415; 71260; 74177; 76705; 80053; 81003; 81015; 82150; 83690; 83735; 85025; 85610; 85730; 96361; 96374; 96375; 99283; J1642; J2270; J2405; J2765; Q9967

== ENCOUNTER 2018-10-10 22:15 | Emergency (ER) | payer BC ==
[2018-10-10] MEDS ORDERED: NS 0.9% 1000 ML* 1,000 ML IV ONE (23:10)
[2018-10-10] MEDS ORDERED: Metoclopramide IV* 5 MG/ML 2 ML VIAL IV ONE (23:10)
[2018-10-10] MEDS ORDERED: diPHENhydraMINE PO* 25 MG PO ONE (23:17)
[2018-10-10] MEDS ORDERED: Acetaminophen TAB* 325 MG PO ONE (23:23)
[2018-10-11 00:04] LABS: ABS Basophils 0 10^3/ul (0-0.2); ABS Eosinophils 0 10^3/ul (0-0.6); ABS Lymphocytes 0.6 10^3/ul (1.0-4.8); ABS Monocytes 0.3 10^3/ul (0-0.8); ABS Nucleated RBC 0 10^3/ul; Eosinophil % 0.2 %; Hematocrit 29 % (35-47); Hemoglobin 10.3 g/dl (12.0-16.0); Mean Corpuscular HGB Conc 35 g/dl (31-36); Mean Corpuscular Hemoglobin 30 pg (27-31); Mean Corpuscular Volume 85 fL (80-97); Mean Platelet Volume 6.6 fL (7.4-10.4); Nucleated Red Blood Cells % 0; Platelet Count 65 10^3/ul (150-450); Red Blood Count 3.44 10^6/ul (4.00-5.40); Red Cell Distribution Width 16 % (10.5-15)
[2018-10-11 00:14] LABS: Albumin 3.4 g/dL (3.2-5.2); Albumin/Globulin Ratio 1.1 (1-3); BUN/Creatinine Ratio 14.6 (8-20); C Reactive Protein 3.32 mg/L (<8.01); Calcium 9.8 mg/dL (8.6-10.3); EGFR Non-African American 59.1 (>60); Globulin 3.2 g/dL (2-4); Potassium 3.8 mmol/L (3.5-5.0); Total Bilirubin 0.6 mg/dL (0.2-1.0); Total Protein 6.6 g/dL (6.4-8.9)
[2018-10-11] MEDS ORDERED: Labetalol IV* 5 MG/ML 20 ML VIAL IV PUSH ONE (00:37)
[2018-10-11] MEDS ORDERED: Metoprolol Tartrate IV* 1 MG/ML 5 ML VIAL IV ONE ×2 (00:48→01:57)
--- NOTE | 2018-10-11 01:10 | ED ---
Nausea/Vomiting/Diarrhea HPI - HPI Summary HPI Summary: Patient with history of ovarian cancer receiving chemotherapy treatment complains of nausea vomiting and headache, elevated BP today. Denies fever, cough, sore throat, CP, SOB, abdominal pain, change in urine, change in BM. Patient has history of an intractable headache and intractable nausea vomiting in response to chemotherapy. Patient had endoscopy today in attempt to resolve intractable nausea or vomiting. Endoscopy negative for obstruction. Multiple prior scans for evaluation of intractable headache, all negative. Patient told by oncologist to take Ativan 2 followed by Zofran ODT for nausea vomiting, which patient states did not resolve nausea vomiting. Patient denies any other symptoms, injury or pain. Medical history is ovarian cancer, DM, history of hypertension as reaction to chemotherapy with no prior diagnosis of hypertension. Currently taking 2 medications for hypertension, but states she vomited them all up today. - History of Current Complaint Chief Complaint: EDNauseaVomitDiarrh Stated Complaint: VOMITING/HEADACHE Time Seen by Provider: 10/10/18 22:51 Hx Obtained From: Patient, Family/Ash Collector ?: No Onset/Duration: Lasting Weeks Timing: Intermittent Episodes Lasting: Severity Initially: Moderate Severity Currently: Moderate Pain Intensity: 6 Pain Scale Used: 0-10 Numeric Aggravating Factor(s): Food Alleviating Factor(s): Nothing Nausea/Vomiting Presence: Nauseated, Vomiting Vomiting Frequency: Every 3-4 hours Nausea/Vomiting Duration: > 7 days Vomiting Characteristics: Retching, Nonbilious Diarrhea Presence: No - Allergies/Home Medications Allergies/Adverse Reactions: Allergies Allergy/AdvReac Type Severity Reaction Status Date / Time meperidine [From Demerol] Allergy Vomiting Verified 10/10/18 22:31 oxycodone [From Percocet] Allergy Unknown Verified 10/10/18 22:31 Reaction Details propoxyphene Allergy GI Upset Verified 10/10/18 22:31 [From Darvocet-N] Sulfa (Sulfonamide Allergy Rash Verified 10/10/18 22:31 Antibiotics) PMH/Surg Hx/FS Hx/Imm Hx Endocrine/Hematology History: Reports: Hx Diabetes Denies: Hx Thyroid Disease, Hx Anemia Cardiovascular History: Reports: Hx Angina, Hx Hypercholesterolemia, Hx Hypertension, Other Cardiovascular Problems/Disorders - pericarditis, dyslipidemia Denies: Hx Coronary Artery Disease, Hx Myocardial Infarction, Hx Pacemaker/ ICD Respiratory History: Reports: Hx Sleep Apnea - bipap Denies: Hx Asthma, Hx Chronic Obstructive Pulmonary Disease (COPD) GI History: Reports: Hx Gastroesophageal Reflux Disease, Other GI Disorders - colonoscopy 2011 polyps removed, hemorroids Denies: Hx Cirrhosis, Hx Jaundice, Hx Ulcer History: Denies: Hx Renal Disease Musculoskeletal History: Reports: Hx Arthritis, Hx Back Problems Denies: Hx Rheumatoid Arthritis, Hx Osteoporosis Sensory History: Reports: Hx Cataracts, Hx Contacts or Glasses Denies: Hx Hearing Aid Opthamlomology History: Reports: Hx Cataracts, Hx Contacts or Glasses Neurological History: Reports: Hx Headaches, Hx Migraine Psychiatric History: Reports: Hx Anxiety, Hx Depression Denies: Hx Panic Disorder - Cancer History Cancer Type, Location and Year: ovarian cancer WITH METASTISIS TO PERITONEUM Hx Chemotherapy: Yes Hx Radiation Therapy: No Hx Palliative Cancer Treatment: No - Surgical History Surgery Procedure, Year, and Place: hemorrhoidectomy. sinus surgery. tubal. laproscopic exploratory surgeries x 2. 05/30/2017, HYSTERECTOMY,APPY, PARTIAL COLECTOMY + BOWEL RESECTION FOR CA. POWER PORT Hx Anesthesia Reactions: No Infectious Disease History: No Infectious Disease History: Denies: Hx Clostridium Difficile, Hx Hepatitis, Hx Human Immunodeficiency Virus (HIV), Hx of Known/Suspected MRSA, Hx Shingles, Hx Tuberculosis, Hx Known/ Suspected VRE, Hx Known/Suspected VRSA, History Other Infectious Disease, Traveled Outside the [place] in Last 30 Days - Family History Known Family History: Positive: Cardiac Disease, Other - colon CA - Social History Alcohol Use: None Substance Use Type: Reports: None Smoking Status (MU): Former Smoker Amount Used/How Often: quit 18 years ago Have You Smoked in the Last Year: No Review of Systems Constitutional: Negative Eyes: Negative ENT: Negative Cardiovascular: Negative Respiratory: Negative Positive: Vomiting, Nausea Genitourinary: Negative Musculoskeletal: Negative Skin: Negative Positive: Headache Psychological: Normal All Other Systems Reviewed And Are Negative: Yes Physical Exam Triage Information Reviewed: Yes Vital Signs On Initial Exam: Initial Vitals Temp Pulse Resp BP Pulse Ox 97.7 F 95 16 142/102 97 10/10/18 22:20 10/10/18 22:20 10/10/18 22:20 10/10/18 22:20 10/10/18 22:20 Vital Signs Reviewed: Yes Appearance: Positive: Well-Appearing Skin: Positive: Warm Head/Face: Positive: Normal Head/Face Inspection Eyes: Positive: Normal Neck: Positive: Supple Respiratory/Lung Sounds: Positive: Clear to Auscultation Cardiovascular: Positive: Normal Abdomen Description: Positive: Nontender Musculoskeletal: Positive: Normal Neurological: Positive: Normal Psychiatric: Positive: Normal AVPU Assessment: Alert - [place] Coma Scale Best Eye Response: 4 - Spontaneous Best Motor Response: 6 - Obeys Commands Best Verbal Response: 5 - Oriented Coma Scale Total: 15 Diagnostics - Vital Signs Vital Signs Temp Pulse Resp BP Pulse Ox 10/11/18 00:00 80 97 10/10/18 23:53 81 206/110 96 10/10/18 23:23 80 195/112 97 10/10/18 23:06 83 206/109 98 10/10/18 23:00 82 97 10/10/18 22:54 84 214/120 97 10/10/18 22:53 84 97 10/10/18 22:20 97.7 F 95 16 142/102 97 - Laboratory Lab Results: Lab Results 10/10/18 10/10/18 10/10/18 Range/Units 23:48 23:48 23:48 WBC 8.0 (3.5-10.8) 10^3/ul RBC 3.44 L (4.00-5.40) 10^6/ul Hgb 10.3 L (12.0-16.0) g/dl Hct 29 L (35-47) % MCV 85 (80-97) fL MCH 30 (27-31) pg MCHC 35 (31-36) g/dl RDW 16 H (10.5-15) % Plt Count 65 L (150-450) 10^3/ul MPV 6.6 L (7.4-10.4) fL Neut % (Auto) 87.9 % Lymph % (Auto) 8.0 % [place] % (Auto) 3.4 % Eos % (Auto) 0.2 % Baso % (Auto) 0.5 % Absolute Neuts (auto) 7.0 (1.5-7.7) 10^3/ul Absolute Lymphs (auto) 0.6 L (1.0-4.8) 10^3/ul Absolute Monos (auto) 0.3 (0-0.8) 10^3/ul Absolute Eos (auto) 0 (0-0.6) 10^3/ul Absolute Basos (auto) 0 (0-0.2) 10^3/ul Absolute Nucleated RBC 0 10^3/ul Nucleated RBC % 0 Sodium 138 (135-145) mmol/L Potassium 3.8 (3.5-5.0) mmol/L Chloride 102 (101-111) mmol/L Carbon Dioxide 29 (22-32) mmol/L Anion Gap 7 (2-11) mmol/L BUN 14 (6-24) mg/dL Creatinine 0.96 H (0.51-0.95) mg/dL Est GFR ( Amer) 71.5 (>60) Est GFR (Non-Af Amer) 59.1 (>60) BUN/Creatinine Ratio 14.6 (8-20) Glucose 138 H (70-100) mg/dL Lactic Acid 0.5 (0.5-2.0) mmol/L Calcium 9.8 (8.6-10.3) mg/dL Total Bilirubin 0.60 (0.2-1.0) mg/dL AST 15 (13-39) U/L ALT 8 (7-52) U/L Alkaline Phosphatase 69 (34-104) U/L C-Reactive Protein 3.32 (<8.01) mg/L Total Protein 6.6 (6.4-8.9) g/dL Albumin 3.4 (3.2-5.2) g/dL Globulin 3.2 (2-4) g/dL Albumin/Globulin Ratio 1.1 (1-3) Result Diagrams: 10/10/18 23:48 10/10/18 23:48 Lab Statement: Any lab studies that have been ordered have been reviewed, and results considered in the medical decision making process. Naus/Vom/Diarrhea Course/Dx - Course Course Of Treatment: Patient with history of ovarian cancer receiving chemotherapy treatment complains of nausea vomiting and headache, elevated BP today. Denies fever, cough, sore throat, CP, SOB, abdominal pain, change in urine, change in BM. Patient has history of an intractable headache and intractable nausea vomiting in response to chemotherapy. Patient had endoscopy today in attempt to resolve intractable nausea or vomiting. Endoscopy negative for obstruction. Multiple prior scans for evaluation of intractable headache, all negative. Patient told by oncologist to take Ativan 2 followed by Zofran ODT for nausea vomiting, which patient states did not resolve nausea vomiting. Patient denies any other symptoms, injury or pain. Medical history is ovarian cancer, DM, history of hypertension as reaction to chemotherapy with no prior diagnosis of hypertension. Currently taking 2 medications for hypertension, but states she vomited them all up today. Physical exam unremarkable. Abdominal exam unremarkable. Initial blood pressure in triage within normal range. Subsequent blood pressures while in exam room elevated above with SBP above 200 and DBP above 100. History of hypertension in response to chemotherapy, currently taking 2 hypertensive medications. Patient had extensive nausea vomiting today. No history of hypertension prior to chemotherapy. Vital signs otherwise within normal limits. Labs at patient baseline. Nausea and vomiting controlled with Reglan. Headache somewhat improved with combination of Reglan, Benadryl and Tylenol. Patient managed by mouth Tylenol and Benadryl without nausea or vomiting. States her symptoms somewhat improved. Blood pressure 175/110 after 5 mg Lopressor. Second dose of Lopressor 5 mg IV administered. BP decreased to 175/90 after second dose lopressor. Pt N/V, and CEVALLOS continues to be improved. Pt sleeping last hr. Discussed patient with oncology avionics electronics technician Dr. Joseph who is patient's oncologist. Dr. Joseph stated intractable nausea vomiting and headache have been chronic. Patient has been evaluated with multiple scans of the head for intractable headache symptoms. Endoscopy today for intractable nausea vomiting. Dr. Joseph stated as long as patient could tolerate by mouth meds she can be discharged home. - Differential Dx/Diagnosis Provider Diagnosis: Headache, Nausea & vomiting Discharge - Sign-Out/Discharge Documenting (check all that apply): Patient Departure - Discharge Plan Condition: Stable Disposition: HOME Patient Education Materials: Chemo Induced Nausea and Vomiting (ED) Referrals: Peg Joseph MD [Primary Care Provider] - Additional Instructions: Take blood pressure medication this morning as usual. Follow up with oncology later today. Return to ED for any new or worsening symptoms. - Billing Disposition and Condition Condition: STABLE Disposition: Home
[2018-10-11 04:11] VITALS: BP 174/89
== END 2018-10-11 03:35 | disposition home or self-care (01) ==
LOC: ED 22:15
DX: R11.2 Nausea with vomiting, unspecified (principal); R51 Headache; Z87.891 Personal history of nicotine dependence; E11.9 Type 2 diabetes mellitus without complications; E78.00 Pure hypercholesterolemia, unspecified; I10 Essential (primary) hypertension; G47.30 Sleep apnea, unspecified; C56.9 Malignant neoplasm of unspecified ovary; C78.6 Secondary malignant neoplasm of retroperitoneum and peritoneum; K21.9 Gastro-esophageal reflux disease without esophagitis
CPT/HCPCS: 36415; 80053; 83605; 85025; 86140; 86304; 96361; 96374; 96375; 96376; 99284; A9270-GY; J2765; J3490